=== PATIENT | male | born 1945 | race Caucasian/White ===

== ENCOUNTER 2018-07-20 13:36 | Inpatient (IN) | payer MEDICARE, MEDICAID ==
[~2018-07-20] VITALS: Ht 188 cm; Wt 100.5 kg
[~2018-07-20 13:36] MED LIST: NAPR500T6 PO; NO HOME MEDS; PRED20TA PO
[2018-07-20] MEDS ORDERED: normal saline 1000ML IV soln IVB ONE ×2 (14:05→14:35)
[2018-07-20 14:31] LABS: BASOPHILS % (AUTO) 0.3 % (0-1); EOSINOPHILS # (AUTO) 0.1 X10'3 (0-0.9); EOSINOPHILS % (AUTO) 1.1 % (0-6); HEMATOCRIT 51.6 % (42.0-52.0); HEMOGLOBIN 17.6 g/dl (14.0-17.9); LYMPHOCYTES # (AUTO) 1.2 X10'3 (1.1-4.8); MEAN CORPUSCULAR HEMOGLOBIN 36.6 PG (27.0-31.0); MEAN CORPUSCULAR HGB CONC 34.1 % (33.0-36.5); MEAN CORPUSCULAR VOLUME 107.3 FL (78-98); MEAN PLATELET VOLUME 9.1 FL (7.4-10.4); MONOCYTES # (AUTO) 0.6 X10'3 (0-0.9); MONOCYTES % (AUTO) 7.7 % (2-12); NEUTROPHILS # (AUTO) 5.7 X10'3 (1.8-7.7); NEUTROPHILS % (AUTO) 74.9 % (42-75); PLATELET COUNT 92 X10'3 (140-440); RED BLOOD COUNT 4.81 X10'6 (4.70-6.10); RED CELL DISTRIBUTION WIDTH 15.8 % (11.5-14.5); WHITE BLOOD COUNT 7.6 X10'3 (4.5-11.0)
[2018-07-20] MEDS ORDERED: diltiazem-NS 100mg/100ml 100 ML IV ONE (14:34)
[2018-07-20] MEDS ORDERED: enoxaparin 100mg/ml syringe SUBCUT ONE (14:35)
[2018-07-20] MEDS ORDERED: diltiazem 5mg/ml 5ml inj. IV ONE (14:35)
[2018-07-20 14:43] LABS: ALANINE AMINOTRANSFERASE 35 U/L (12-78); ALBUMIN 2.7 G/DL (3.4-5.0); ALBUMIN/GLOBULIN RATIO 0.7 (1.1-1.5); ALKALINE PHOSPHATASE 113 IU/L (46-116); ANION GAP 11 (8-16); ASPARTATE AMINO TRANSFERASE 47 U/L (10-37); BILIRUBIN,TOTAL 0.5 MG/DL (0.1-1.0); BLOOD UREA NITROGEN 17 MG/DL (7-18); CALCIUM 9.1 MG/DL (8.5-10.1); CHLORIDE 99 MMOL/L (99-107); CREATININE 0.85 MG/DL (0.60-1.10); GLUCOSE 159 MG/DL (70-104); LARGE PLATELETS FEW; PLATELET ESTIMATE DECREASED; SODIUM 136 MMOL/L (135-145); TOTAL CARBON DIOXIDE 25.9 MMOL/L (24-32); TOTAL PROTEIN 6.4 G/DL (6.4-8.2); eGFR 89 ML/MIN
[2018-07-20 14:51] LABS: POTASSIUM 2.8 MMOL/L (3.5-5.1)
[2018-07-20] MEDS ORDERED: ENAL10TA78 PO (14:52)
[2018-07-20] MEDS ORDERED: OMEP40CA37 PO (14:52)
[2018-07-20] MEDS ORDERED: ALB0.5UD NEB (14:52)
[2018-07-20] MEDS ORDERED: IBUP-1984 PO (14:52)
[2018-07-20] MEDS ORDERED: FLUT1BLS4 IH (14:52)
[2018-07-20 14:55] LABS: PARTIAL THROMBOPLASTIN TIME 29 SECONDS (22-32)
[2018-07-20] MEDS ORDERED: diltiazem-D5W 125mg/125ml 125 ML IV ONE (15:00)
[2018-07-20] MEDS: potassium 10mEq/100ml NS w/LIDOcaine (10mg/bag) IV SCH ×2 (15:16→16:22)
[2018-07-20] MEDS ORDERED: potassium Cl 40MEQ/NS 500ml 500 ML IV PRN ×2 (15:40)
[2018-07-20] MEDS ORDERED: HYDROcodone/acetaminophen 5mg/325mg tablet PO PRN (15:40)
[2018-07-20] MEDS ORDERED: magnesium 1gm/100ml D5W IVPB 100 ML IV PRN (15:40)
[2018-07-20] MEDS ORDERED: ondansetron/PF 4mg/2ml inj IV PRN (15:40)
[2018-07-20] MEDS ORDERED: potassium Cl 20 mEq SR tablet PO PRN (15:40)
[2018-07-20] MEDS ORDERED: dextrose 50%-water 50ml dispensing syringe IV PRN (15:40)
[2018-07-20] MEDS ORDERED: mag hydrox/Alum hydrox/simeth 30ml oral suspension PO PRN (15:40)
[2018-07-20] MEDS ORDERED: acetaminophen 325mg tablet PO PRN (15:40)
[2018-07-20] MEDS ORDERED: thiamine 100mg/ml 2ml inj. IV ONE (15:40)
[2018-07-20] MEDS ORDERED: magnesium 4gm in 100ml NS 100 ML IV PRN (15:40)
[2018-07-20] MEDS ORDERED: LORazepam 2 mg/ml vial IV PRN (15:40)
[2018-07-20] MEDS ORDERED: morphine 2 MG/ML inj. syringe IV PRN (15:40)
[2018-07-20] MEDS ORDERED: magnesium Cl slow-release 64mg tablet PO PRN (15:40)
[2018-07-20] MEDS ORDERED: LORazepam 1 MG tablet PO PRN (15:40)
[2018-07-20] MEDS ORDERED: magnesium hydroxide 30ml (MOM) UD suspension PO PRN (15:40)
[2018-07-20] MEDS: normal saline 1000ml 1,000 ML IV SCH (16:00)
[2018-07-20 16:01] LABS: CLARITY,URINE CLEAR (Clear); COLOR,URINE YELLOW (Yellow); GLUCOSE, URINE NEGATIVE (Neg); KETONES,URINE TRACE mg/dl (Neg); LEUKOCYTE ESTERASE ,URINE TRACE (Neg); NITRITES, URINE NEGATIVE (Neg); OCCULT BLOOD,URINE NEGATIVE (Neg); PROTEIN,URINE NEGATIVE (Neg)
[2018-07-20 16:02] LABS: UA COLLECTION TYPE URINAL
[2018-07-20 16:11] LABS: BACTERIA,URINE FEW /HPF (Neg); MUCUS STRANDS FEW /LPF (Neg); RBC,URINE 0-2 /HPF (0-2); SQUAMOUS EPITHELIAL CELL,UR FEW /LPF (FEW)
[2018-07-20 17:02] VITALS: BP 122/71
[2018-07-20 19:00] VITALS: BP 110/78
[2018-07-20 21:00] VITALS: BP 123/77
[2018-07-20 23:00] VITALS: BP 123/77
[2018-07-21] VITALS (12 sets, daily range): BP systolic 102–141; BP diastolic 54–88
[2018-07-21] MEDS: normal saline 1000ml 1,000 ML IV SCH ×2 (01:39→05:02)
[2018-07-21 02:26] LABS: BASOPHILS % (AUTO) 0.7 % (0-1); EOSINOPHILS # (AUTO) 0.1 X10'3 (0-0.9); EOSINOPHILS % (AUTO) 1.1 % (0-6); HEMATOCRIT 45.5 % (42.0-52.0); HEMOGLOBIN 15.6 g/dl (14.0-17.9); LYMPHOCYTES # (AUTO) 1.1 X10'3 (1.1-4.8); LYMPHOCYTES % (AUTO) 16.4 % (21-51); MEAN CORPUSCULAR HEMOGLOBIN 36.8 PG (27.0-31.0); MEAN CORPUSCULAR HGB CONC 34.4 % (33.0-36.5); MEAN CORPUSCULAR VOLUME 107.1 FL (78-98); MONOCYTES # (AUTO) 0.5 X10'3 (0-0.9); MONOCYTES % (AUTO) 7.9 % (2-12); NEUTROPHILS % (AUTO) 73.9 % (42-75); PLATELET COUNT 78 X10'3 (140-440); RED BLOOD COUNT 4.25 X10'6 (4.70-6.10); WHITE BLOOD COUNT 6.8 X10'3 (4.5-11.0)
[2018-07-21 02:29] LABS: ALANINE AMINOTRANSFERASE 30 U/L (12-78); ALBUMIN 2.3 G/DL (3.4-5.0); ALBUMIN/GLOBULIN RATIO 0.7 (1.1-1.5); ALKALINE PHOSPHATASE 85 IU/L (46-116); ANION GAP 5 (8-16); ASPARTATE AMINO TRANSFERASE 35 U/L (10-37); BILIRUBIN,TOTAL 0.7 MG/DL (0.1-1.0); BLOOD UREA NITROGEN 11 MG/DL (7-18); BUN/CREATININE RATIO 15.5 (5.4-32.0); CALCIUM 8.1 MG/DL (8.5-10.1); CHLORIDE 104 MMOL/L (99-107); CREATININE 0.71 MG/DL (0.60-1.10); GLUCOSE 106 MG/DL (70-104); POTASSIUM 3.4 MMOL/L (3.5-5.1); SODIUM 139 MMOL/L (135-145); TOTAL CARBON DIOXIDE 30.5 MMOL/L (24-32); TOTAL PROTEIN 5.4 G/DL (6.4-8.2); eGFR > 90 ML/MIN
[2018-07-21 02:32] LABS: MAGNESIUM 1.5 MG/DL (1.5-2.4)
[2018-07-21] MEDS ORDERED: K and/or MAG REPLACEMENT MC SCH (08:00)
[2018-07-21] MEDS: lisinopril 5mg tablet PO SCH (08:47)
[2018-07-21] MEDS: potassium Cl 20 mEq SR tablet PO PRN ×4 (08:47→18:38)
[2018-07-21] MEDS: pantoprazole 40mg Tablet.DR PO SCH (08:52)
[2018-07-21] MEDS ORDERED: nicotine 14mg patch - 24hr TD SCH (09:55)
[2018-07-21] MEDS ORDERED: LORazepam 1 MG tablet PO PRN (09:55)
[2018-07-21] MEDS ORDERED: iohexol 300mg/ml 100ml inj. ONE (16:20)
[2018-07-21] MEDS: thiamine 100mg tablet PO SCH (20:40)
[2018-07-22 03:00] VITALS: BP 117/77
[2018-07-22 06:47] LABS: ALANINE AMINOTRANSFERASE 32 U/L (12-78); ALBUMIN 2.3 G/DL (3.4-5.0); ALBUMIN/GLOBULIN RATIO 0.7 (1.1-1.5); ALKALINE PHOSPHATASE 85 IU/L (46-116); ANION GAP 8 (8-16); ASPARTATE AMINO TRANSFERASE 39 U/L (10-37); BILIRUBIN,TOTAL 0.7 MG/DL (0.1-1.0); BLOOD UREA NITROGEN 6 MG/DL (7-18); BUN/CREATININE RATIO 7.7 (5.4-32.0); CALCIUM 8.4 MG/DL (8.5-10.1); CHLORIDE 107 MMOL/L (99-107); CREATININE 0.78 MG/DL (0.60-1.10); GLUCOSE 99 MG/DL (70-104); MAGNESIUM 1.5 MG/DL (1.5-2.4); POTASSIUM 3.8 MMOL/L (3.5-5.1); SODIUM 142 MMOL/L (135-145); TOTAL CARBON DIOXIDE 27.5 MMOL/L (24-32); TOTAL PROTEIN 5.5 G/DL (6.4-8.2); eGFR > 90 ML/MIN
[2018-07-22 06:57] LABS: BASOPHILS % (AUTO) 0.3 % (0-1); EOSINOPHILS % (AUTO) 0 % (0-6); HEMATOCRIT 45.8 % (42.0-52.0); HEMOGLOBIN 15.3 g/dl (14.0-17.9); LYMPHOCYTES % (AUTO) 14.4 % (21-51); MEAN CORPUSCULAR HEMOGLOBIN 35.9 PG (27.0-31.0); MEAN CORPUSCULAR HGB CONC 33.3 % (33.0-36.5); MEAN CORPUSCULAR VOLUME 107.8 FL (78-98); MEAN PLATELET VOLUME 8.9 FL (7.4-10.4); MONOCYTES # (AUTO) 0.5 X10'3 (0-0.9); MONOCYTES % (AUTO) 7.6 % (2-12); NEUTROPHILS # (AUTO) 5.2 X10'3 (1.8-7.7); NEUTROPHILS % (AUTO) 77.7 % (42-75); PLATELET COUNT 84 X10'3 (140-440); RED BLOOD COUNT 4.25 X10'6 (4.70-6.10); RED CELL DISTRIBUTION WIDTH 15.7 % (11.5-14.5); WHITE BLOOD COUNT 6.6 X10'3 (4.5-11.0)
[2018-07-22 07:00] VITALS: BP 147/86
[2018-07-22] MEDS ORDERED: multivitamins, therapeutics tablet PO SCH (08:00)
[2018-07-22] MEDS ORDERED: folic acid 1mg tablet PO SCH (08:00)
[2018-07-22] MEDS: thiamine 100mg tablet PO SCH (08:05)
[2018-07-22] MEDS: lisinopril 5mg tablet PO SCH (08:06)
[2018-07-22] MEDS: pantoprazole 40mg Tablet.DR PO SCH (08:06)
[2018-07-22] MEDS ORDERED: NICO-631 TD (09:16)
[2018-07-22] MEDS ORDERED: FOLI1TAB16 PO (09:16)
[2018-07-22] MEDS ORDERED: RIVA20TA PO (09:16)
[2018-07-22] MEDS ORDERED: MULT-1179 PO (09:16)
[2018-07-22] MEDS ORDERED: THI100T PO (09:16)
[2018-07-22] MEDS ORDERED: DILT180C95 PO (09:22)
[2018-07-22 11:00] VITALS: BP 147/100
== END 2018-07-22 12:35 | disposition home or self-care (01) | DRG 309 ==
LOC: ER 13:37 → ED HOLD 15:39 → PCU 3S 16:30
PROVIDERS: ADMIT Internal Medicine; ATTEND Family Medicine
PROC: BW281ZZ Computerized Tomography (CT Scan) of Head using Low Osmolar Contrast (ICD-10-PCS; principal; 2018-07-21)
DX: I48.91 Unspecified atrial fibrillation (principal); E44.0 Moderate protein-calorie malnutrition; E87.6 Hypokalemia; F10.10 Alcohol abuse, uncomplicated; F17.210 Nicotine dependence, cigarettes, uncomplicated; I10 Essential (primary) hypertension; G90.8 Other disorders of autonomic nervous system; R51 Headache; J44.9 Chronic obstructive pulmonary disease, unspecified; K76.0 Fatty (change of) liver, not elsewhere classified; Z79.899 Other long term (current) drug therapy; Z87.01 Personal history of pneumonia (recurrent); Z71.6 Tobacco abuse counseling; Z71.41 Alcohol abuse counseling and surveillance of alcoholic; Z68.28 Body mass index [BMI] 28.0-28.9, adult
CPT/HCPCS: 36415; 70470; 71045; 76700; 80053; 80320; 81001; 82948; 83735; 84132; 84145; 84484; 85025; 85610; 85730; 87070; 87088; 93005; 93306; 93880; 96361; 96372; 96374; 97116; 97161; 97530; 99285; G0378; J1650; J3411; J3480; J3490; J7030; Q9967

== ENCOUNTER 2018-08-11 02:38 | Inpatient (IN) | payer MEDICARE, MEDICAID ==
[2018-08-11] VITALS (11 sets, daily range): BP systolic 62–106; BP diastolic 44–77
[~2018-08-11] VITALS: Ht 188 cm; Wt 112.8 kg
[~2018-08-11 02:38] MED LIST changes: +ALB0.5UD NEB; +DILT180C95 PO; +FLUT1BLS4 IH; +FOLI1TAB16 PO; +MULT-1179 PO; -NAPR500T6 PO; +NICO-631 TD; -NO HOME MEDS; +OMEP40CA37 PO; -PRED20TA PO; +RIVA20TA PO; +THI100T PO
[2018-08-11] MEDS ORDERED: morphine 4 MG/ML inj SYRINge IV ONE ×3 (03:00→04:45)
[2018-08-11] MEDS ORDERED: normal saline 1000ml 1,000 ML IV ONE ×2 (03:00→15:45)
[2018-08-11] MEDS ORDERED: ondansetron/PF 4mg/2ml inj IV ONE (03:00)
[2018-08-11 04:19] LABS: BASOPHILS % (AUTO) 0.1 % (0-1); EOSINOPHILS % (AUTO) 0 % (0-6); HEMATOCRIT 53.6 % (42.0-52.0); HEMOGLOBIN 17.8 g/dl (14.0-17.9); LYMPHOCYTES # (AUTO) 0.8 X10'3 (1.1-4.8); LYMPHOCYTES % (AUTO) 4.5 % (21-51); MEAN CORPUSCULAR HEMOGLOBIN 35.5 PG (27.0-31.0); MEAN CORPUSCULAR HGB CONC 33.2 % (33.0-36.5); MEAN CORPUSCULAR VOLUME 106.8 FL (78-98); MEAN PLATELET VOLUME 9.5 FL (7.4-10.4); MONOCYTES # (AUTO) 0.2 X10'3 (0-0.9); MONOCYTES % (AUTO) 0.9 % (2-12); NEUTROPHILS # (AUTO) 16.3 X10'3 (1.8-7.7); NEUTROPHILS % (AUTO) 94.5 % (42-75); PLATELET COUNT 118 X10'3 (140-440); RED BLOOD COUNT 5.02 X10'6 (4.70-6.10); RED CELL DISTRIBUTION WIDTH 15.2 % (11.5-14.5); WHITE BLOOD COUNT 17.3 X10'3 (4.5-11.0)
[2018-08-11 04:39] LABS: INR 1.3 INR; PROTHROMBIN TIME 13.1 SECONDS (9.0-12.0)
[2018-08-11] MEDS ORDERED: labetalol 20mg/4ml (5mg/ml) syringe IV ONE (04:45)
[2018-08-11 04:48] LABS: ALANINE AMINOTRANSFERASE 30 U/L (12-78); ALBUMIN/GLOBULIN RATIO 0.9 (1.1-1.5); ALKALINE PHOSPHATASE 104 IU/L (46-116); ANION GAP 10 (8-16); BILIRUBIN,TOTAL 2.2 MG/DL (0.1-1.0); BLOOD UREA NITROGEN 28 MG/DL (7-18); CALCIUM 8.3 MG/DL (8.5-10.1); CHLORIDE 107 MMOL/L (99-107); GLUCOSE 169 MG/DL (70-104); LIPASE 141 U/L (73-393); SODIUM 141 MMOL/L (135-145); TOTAL PROTEIN 6.2 G/DL (6.4-8.2); TROPONIN I < 0.04 NG/ML (0.0-0.05); eGFR 74 ML/MIN
[2018-08-11 04:56] LABS: POTASSIUM 3.4 MMOL/L (3.5-5.1)
[2018-08-11 04:59] LABS: ASPARTATE AMINO TRANSFERASE 54 U/L (10-37)
[2018-08-11] MEDS ORDERED: metroNIDAZOLE-Flagyl 500mg/NS 100 ML IV STA (04:59)
[2018-08-11] MEDS ORDERED: ciprofloxacin 250mg tablet PO ONE (05:00)
[2018-08-11] MEDS ORDERED: NAPROXEN 500 MG TABLET (05:29)
[2018-08-11] MEDS ORDERED: FOLIC ACID 1 MG TABLET (05:29)
[2018-08-11] MEDS ORDERED: TRELEGY ELLIPTA 100-62.5-25 (05:29)
[2018-08-11] MEDS ORDERED: ELIQUIS 5 MG TABLET (05:29)
[2018-08-11] MEDS ORDERED: XARELTO 20 MG TABLET (05:29)
[2018-08-11] MEDS ORDERED: ONDANSETRON ODT 4 MG TABLET (05:29)
[2018-08-11] MEDS ORDERED: THERA M (05:29)
[2018-08-11] MEDS ORDERED: VITAMIN B1 (05:29)
[2018-08-11] MEDS ORDERED: LISINOPRIL 20 MG TABLET (05:29)
[2018-08-11] MEDS ORDERED: ACETAMINOPHEN COD (05:29)
[2018-08-11] MEDS ORDERED: NICOTINE 14 MG/24HR PATCH (05:29)
[2018-08-11] MEDS ORDERED: ACETAMINOPHEN-COD #3 TABLET (05:29)
[2018-08-11] MEDS ORDERED: pantoprazole 40MG/NS 100ML BAG 100 ML IV ONE (05:35)
[2018-08-11] MEDS ORDERED: pantoprazole IV 80 MG in normal saline 100ml IV soln 100 ML IV ONE (05:35)
[2018-08-11] MEDS ORDERED: TRANEXAMIC ACID IV ONE (05:50)
[2018-08-11] MEDS ORDERED: NORMAL SALINE IV ONE (05:50)
[2018-08-11] MEDS ORDERED: tranexamic acid 100mg/ml inj. IV ONE (05:50)
[2018-08-11] MEDS ORDERED: pantoprazole 40 MG vial IV ONE (05:55)
--- NOTE | 2018-08-11 06:01 | NUR ---
PT STATES HE DIDN'T TAKE HIS ZARELTO FOR 4 DAYS BUT DID TAKE ONE LAST NIGHT. MADE AWARE
--- NOTE | 2018-08-11 06:13 | NUR ---
PATIENT UP TO THE BATHROOM, ASSISTED BY HIS SPOUSE.
--- NOTE | 2018-08-11 06:50 | NUR ---
PATIENTS DAVID TRENDING DOWN 126/93 AT THIS TIME,NO HOSPITALIST LIST YET,DR. CORTES MADE AWARE,ORDERED NS 1L BOLUS.
--- NOTE | 2018-08-11 07:04 | NUR ---
patient requesting pain medicine,still no hospitalist assigned,verbal order received morphine 4mg iv x1.Order noted and carried out.
[2018-08-11] MEDS ORDERED: morphine 4 MG/ML inj SYRINge IV STA (07:05)
[2018-08-11] MEDS ORDERED: potassium Cl 40MEQ/NS 500ml 500 ML IV PRN ×2 (07:20)
[2018-08-11] MEDS ORDERED: magnesium 4gm in 100ml NS 100 ML IV PRN (07:20)
[2018-08-11] MEDS ORDERED: magnesium Cl slow-release 64mg tablet PO PRN (07:20)
[2018-08-11] MEDS ORDERED: ondansetron/PF 4mg/2ml inj IV PRN ×2 (07:20→21:15)
[2018-08-11] MEDS ORDERED: potassium Cl 20 mEq SR tablet PO PRN ×2 (07:20)
[2018-08-11] MEDS ORDERED: morphine 2 MG/ML inj. syringe IV PRN (07:20)
[2018-08-11] MEDS: pantoprazole 40 MG vial IV SCH ×3 (08:00→23:02)
[2018-08-11] MEDS: metroNIDAZOLE-Flagyl 500mg/NS 100 ML IV SCH ×3 (08:00→23:01)
[2018-08-11 08:30] LABS: OCCULT BLOOD STOOL POSITIVE (Neg)
[2018-08-11] MEDS: levoFLOXACIN-Levaquin 750MG/D5 150 ML IV SCH (08:38)
[2018-08-11] MEDS: normal saline 1000ml 1,000 ML IV SCH ×5 (08:38→22:52)
[2018-08-11] MEDS: K and/or MAG REPLACEMENT MC SCH (08:46)
--- NOTE | 2018-08-11 09:10 | NUR ---
RECIEVED PATIENT REPORT FROM ED NURSE HELEN.
[2018-08-11] MEDS ORDERED: MIDAZolam 5mg/5ml vial ONE (10:43)
[2018-08-11] MEDS ORDERED: fentaNYL/PF 50MCG/1 ML 2ML syringe ONE (10:43)
[2018-08-11] MEDS ORDERED: LIDOcaine Viscous 15ml cup ONE (10:43)
[2018-08-11] MEDS ORDERED: normal saline 500ml IV soln 1,000 ML IV ONE (12:30)
--- NOTE | 2018-08-11 12:57 | NUR ---
Dr. Blackman came to see patient, she is concerned he is not doing well. Patients BP is dropping. Dr. Blackman wants patient transferred to PCU. GI lab will be up to get him soon for EGD
--- NOTE | 2018-08-11 14:50 | NUR ---
Pt does not feel urgency to void. Bladder scanned pt with 270ml noted. No bladder discomfort reported, just lower abd discomfort/pain.
[2018-08-11 15:08] LABS: BASOPHILS % (AUTO) 0.1 % (0-1); EOSINOPHILS % (AUTO) 0.1 % (0-6); HEMATOCRIT 56.1 % (42.0-52.0); LYMPHOCYTES # (AUTO) 0.7 X10'3 (1.1-4.8); LYMPHOCYTES % (AUTO) 4.1 % (21-51); MEAN CORPUSCULAR HEMOGLOBIN 35.9 PG (27.0-31.0); MEAN CORPUSCULAR HGB CONC 33.5 % (33.0-36.5); MEAN PLATELET VOLUME 9.6 FL (7.4-10.4); MONOCYTES # (AUTO) 0.4 X10'3 (0-0.9); NEUTROPHILS # (AUTO) 16.9 X10'3 (1.8-7.7); NEUTROPHILS % (AUTO) 93.7 % (42-75); PLATELET COUNT 93 X10'3 (140-440); RED BLOOD COUNT 5.24 X10'6 (4.70-6.10); RED CELL DISTRIBUTION WIDTH 15.3 % (11.5-14.5)
[2018-08-11 15:12] LABS: HEMOGLOBIN 18.8 g/dl (14.0-17.9)
[2018-08-11 15:37] LABS: ALANINE AMINOTRANSFERASE 36 U/L (12-78); ALBUMIN 2.5 G/DL (3.4-5.0); ALBUMIN/GLOBULIN RATIO 0.9 (1.1-1.5); ALKALINE PHOSPHATASE 65 IU/L (46-116); ANION GAP 15 (8-16); ASPARTATE AMINO TRANSFERASE 98 U/L (10-37); BLOOD UREA NITROGEN 41 MG/DL (7-18); BUN/CREATININE RATIO 17.4 (5.4-32.0); CALCIUM 8.1 MG/DL (8.5-10.1); CHLORIDE 110 MMOL/L (99-107); CREATININE 2.35 MG/DL (0.60-1.10); GLUCOSE 156 MG/DL (70-104); POTASSIUM 5.6 MMOL/L (3.5-5.1); SODIUM 140 MMOL/L (135-145); TOTAL CARBON DIOXIDE 15.4 MMOL/L (24-32); TOTAL PROTEIN 5.4 G/DL (6.4-8.2); TROPONIN I 0.17 NG/ML (0.0-0.05); eGFR 27 ML/MIN
[2018-08-11] MEDS: pantoprazole 40MG/NS 100ML BAG 100 ML IV SCH ×2 (15:38→23:31)
[2018-08-11 15:48] LABS: INR 1.3 INR; PARTIAL THROMBOPLASTIN TIME 31 SECONDS (22-32); PROTHROMBIN TIME 13.4 SECONDS (9.0-12.0)
[2018-08-11 16:04] LABS: TOTAL CELLS COUNTED 100
[2018-08-11 16:05] LABS: PLATELET ESTIMATE DECREASED
--- NOTE | 2018-08-11 17:00 | NUR ---
Vitals beginning at Rapid Response- also noted in Rapid Response Intervention Vitals: 14:53 BP 89/64 hr 116 14:54 BP 88/59 hr 118 14:56 BP 94/61 hr 111 15:03 BP 83/59 hr 112 15:14 BP 78/55 hr 111 15:36 BP 84/57 hr 115 15:37 BP 100/51 hr 114 16:20 BP 94/63 hr 118 Temp 97.5 O2 3LNC 94% Respirations 30
--- NOTE | 2018-08-11 17:00 | NUR ---
Pt arrived to unit via gurney and slid over to bed via slideboard. Complaining of severe abd pain. 1000ml NS bolus infusing. Attached to ICU monitor, SPB 80s-90s. Dr. Motta at bedside to insert central line. Inserted without difficulty and placement confirmed via xray. Pt placed on NRB due to low O2 sats. NGT inserted successfully and placed to low continuous suction, pt vomited x4. Consents for procedures signed by with me as witness. Dr. Royal came by to discuss surgery with pt for ex lap with poss bowel resection, pt verbally consented. PCT prepped surgical area. Anesthesiologist at bedside requesting levophed. 2nd NS bolus infusing at this time, pressures 70s-80s systoloic. Taken to surgery by OR team and report given to machinist 2nd shift nurse Jay Jay. Addendum: 08/11/18 at 1903 by Tammy Rojas RN TIME OF EVENTS 1800
--- NOTE | 2018-08-11 18:00 | NUR ---
Pt arrived to unit via gurney and slid over to bed via slideboard. Complaining of severe abd pain. 1000ml NS bolus infusing. Attached to ICU monitor, SPB 80s-90s. Dr. Motta at bedside to insert central line. Inserted without difficulty and placement confirmed via xray. Pt placed on NRB due to low O2 sats. NGT inserted successfully and placed to low continuous suction, pt vomited x4. Consents for procedures signed by with me as witness. Dr. Royal came by to discuss surgery with pt for ex lap with poss bowel resection, pt verbally consented. PCT prepped surgical area. Anesthesiologist at bedside requesting levophed. 2nd NS bolus infusing at this time, pressures 70s-80s systoloic. Taken to surgery by OR team and report given to shift leader nurse Jay Jay.
[2018-08-11] MEDS ORDERED: clindamycin phosphate 150mg/ml inj. ONE (18:09)
[2018-08-11] MEDS ORDERED: gentamicin 40 MG/1 ML inj ONE (18:09)
--- NOTE | 2018-08-11 18:30 | NUR ---
Problems reprioritized. Patient report given, questions answered & plan of care reviewed with JASON Goyal.
[2018-08-11] MEDS ORDERED: sevoflurane 250ml liquid IH ONE (18:40)
[2018-08-11] MEDS ORDERED: NORepinephrine bitartrate 8 MG in NS 250 ML BAG (32 mcg/ml) IV ONE (18:40)
[2018-08-11] MEDS ORDERED: ketamine 50mg/5ml syringe ONE (18:43)
[2018-08-11] MEDS ORDERED: midazolam 2 mg/2 ml injection ONE (18:43)
[2018-08-11] MEDS ORDERED: fentaNYL /PF 50mcg/ml 5ml ampule ONE (18:44)
--- NOTE | 2018-08-11 18:54 | NUR ---
patient left to OR at this time
[2018-08-11 19:35] LABS: ABG BASE EXCESS -17.3 mmol/L (-2.0-3.0); ABG HCO3 13.5 mmol/L (22.0-26.0); ABG OXYGEN SATURATION 99.7 % (95-98); ABG PCO2 (T) 51.1 mmHg (35.0-48.0); ABG PO2 (T) 375.4 mmHg (83-108); FCOHb 1.9 % (0.5-1.5); FMetHb 0.3 % (0.3-1.12); FO2Hb 97.5 % (94-100); TOTAL HEMOGLOBIN 15.9 G/dl (14.0-18.0)
[2018-08-11] MEDS ORDERED: ipratropium/albuterol 3ml nebule NEB PRN (20:10)
[2018-08-11 20:25] LABS: ABG BASE EXCESS -12.6 mmol/L (-2.0-3.0); ABG HCO3 15.5 mmol/L (22.0-26.0); ABG OXYGEN SATURATION 99.7 % (95-98); ABG PCO2 (T) 44.2 mmHg (35.0-48.0); ABG PH (T) 7.165 (7.350-7.450); ABG PO2 (T) 322.3 mmHg (83-108); FCOHb 2.1 % (0.5-1.5); FMetHb 0.3 % (0.3-1.12); FO2Hb 97.3 % (94-100); PATIENT TEMPERATURE 37.4; TOTAL HEMOGLOBIN 13.9 G/dl (14.0-18.0)
--- NOTE | 2018-08-11 21:30 | NUR ---
patient back from OR at 2130. intubated/sedated. BP 60's/40's. levo and fluid bolus where already infusing. Dr herrera present. gave order for vasopressin.
[2018-08-11] MEDS ORDERED: albumin (Human) 5% 250ml 500 ML IV ONE ×2 (21:31→22:01)
[2018-08-11] MEDS ORDERED: rocuronium 10mg/ml inj IV ONE (21:31)
[2018-08-11] MEDS ORDERED: epiNEPHrine 1 mg/ml inj ONE (21:31)
[2018-08-11] MEDS ORDERED: sodium bicarbonate 1 MEQ/1 ml inj ONE (21:32)
[2018-08-11] MEDS ORDERED: furosemide 40mg/4ml inj ONE (21:32)
[2018-08-11 21:45] LABS: ABG BASE EXCESS -8.4 mmol/L (-2.0-3.0); ABG HCO3 20.4 mmol/L (22.0-26.0); ABG OXYGEN SATURATION 99.5 % (95-98); ABG PCO2 (T) 56.9 mmHg (35.0-48.0); ABG PH (T) 7.173 (7.350-7.450); ABG PO2 (T) 231.3 mmHg (83-108); FCOHb 1.5 % (0.5-1.5); FMetHb 0.3 % (0.3-1.12); FO2Hb 97.7 % (94-100); MINUTE VOLUME 9 L/min; PEEP 5 cm H2O; RESPIRATORY RATE 16 b/min; RESPIRATORY RATE (OBSERVED) 16 b/min; TIDAL VOLUME 500 mL; TOTAL HEMOGLOBIN 12.7 G/dl (14.0-18.0)
--- NOTE | 2018-08-11 22:00 | NUR ---
Dr Royal present around 2200. observed pt BP. gave order to start vasopressin as soon as possible from pharmacy. gave orders for 1000ml of 5% albumin to be given STAT. stated that we wanted patient on a flotrac if possible to observe fluid status.
[2018-08-11] MEDS: vasopressin inj. 60 UNIT in normal saline 100ml IV soln 97 ML IV SCH (22:18)
[2018-08-11] MEDS ORDERED: albumin (Human) 5% 250ml 250 ML IV ONE ×5 (22:20→22:22)
[2018-08-11 22:35] LABS: OXYGEN SATURATION (MIXED VEN) 80.7 % (60-80); PO2 MIXED VENOUS (TEMP COR) 44.9 mmHg (35-46)
[2018-08-11 22:35] LABS: ABG BASE EXCESS -9.5 mmol/L (-2.0-3.0); ABG HCO3 17.6 mmol/L (22.0-26.0); ABG OXYGEN SATURATION 96.1 % (95-98); ABG PCO2 (T) 43.6 mmHg (35.0-48.0); ABG PH (T) 7.225 (7.350-7.450); ABG PO2 (T) 85.8 mmHg (83-108); FCOHb 1.4 % (0.5-1.5); FMetHb 0.3 % (0.3-1.12); FO2Hb 94.5 % (94-100); MINUTE VOLUME 14 L/min; PEEP 5 cm H2O; RESPIRATORY RATE 24 b/min; RESPIRATORY RATE (OBSERVED) 24 b/min; TIDAL VOLUME 550 mL; TOTAL HEMOGLOBIN 11.4 G/dl (14.0-18.0)
[2018-08-11] MEDS: midazolam 100mg in NS 100ml 100 ML IV PRN (23:02)
[2018-08-11] MEDS: FENTANYL-0.9 % NACL/PF 100 ML IV PRN (23:02)
[2018-08-11] MEDS: piperacillin/tazo 3.375gm/50ml 50 ML IV SCH (23:03)
[2018-08-11] MEDS: sodium bicarbonate (8.4%) inj. 150 MEQ in sodium chloride 0.45% 1,000 ML IV SCH (23:38)
[2018-08-11 23:46] LABS: ABG BASE EXCESS -8.7 mmol/L (-2.0-3.0); ABG HCO3 16.8 mmol/L (22.0-26.0); ABG OXYGEN SATURATION 95.4 % (95-98); ABG PCO2 (T) 34.8 mmHg (35.0-48.0); ABG PH (T) 7.302 (7.350-7.450); ABG PO2 (T) 78.9 mmHg (83-108); FCOHb 0.9 % (0.5-1.5); FMetHb 0.3 % (0.3-1.12); FO2Hb 94.3 % (94-100); MINUTE VOLUME 16 L/min; PATIENT TEMPERATURE 36.8; PEEP 5 cm H2O; RESPIRATORY RATE 24 b/min; RESPIRATORY RATE (OBSERVED) 24 b/min; TIDAL VOLUME 600 mL; TOTAL HEMOGLOBIN 10.8 G/dl (14.0-18.0)
[2018-08-12] VITALS (35 sets, daily range): BP systolic 92–134; BP diastolic 44–71
--- NOTE | 2018-08-12 | NUR ---
dr Royal present again at this time. observed pt VS and gave orders for 1000ml more of 5% albumin.
[2018-08-12] MEDS ORDERED: albumin (Human) 5% 250ml 250 ML IV ONE ×3 (00:30)
--- NOTE | 2018-08-12 00:30 | NUR ---
flotrac found and initiated at this time. excellent CO/CI
[2018-08-12] MEDS: pantoprazole 40MG/NS 100ML BAG 100 ML IV SCH ×5 (01:00→21:43)
[2018-08-12] MEDS ORDERED: NORepinephrine 8mg/ 250ml NS 250 ML IV ONE (01:23)
[2018-08-12] MEDS: normal saline 1000ml 1,000 ML IV SCH ×4 (01:40→12:30)
[2018-08-12] MEDS: piperacillin/tazo 3.375gm/50ml 50 ML IV SCH ×4 (01:40→20:00)
[2018-08-12] MEDS ORDERED: piperacillin/tazo 3.375gm/50ml 50 ML IV SCH (02:00)
[2018-08-12] MEDS: albumin (Human) 5% 250ml 250 ML IV SCH ×4 (02:27→02:30)
[2018-08-12 03:40] LABS: ABG HCO3 17.2 mmol/L (22.0-26.0); ABG PCO2 (T) 33.7 mmHg (35.0-48.0); ABG PH (T) 7.326 (7.350-7.450); ABG PO2 (T) 86.5 mmHg (83-108); FCOHb 0.4 % (0.5-1.5); FMetHb 0.3 % (0.3-1.12); FO2Hb 95.3 % (94-100); MINUTE VOLUME 16 L/min; PATIENT TEMPERATURE 36.9; PEEP 5 cm H2O; RESPIRATORY RATE 24 b/min; RESPIRATORY RATE (OBSERVED) 26 b/min; TIDAL VOLUME 600 mL; TOTAL HEMOGLOBIN 9.2 G/dl (14.0-18.0)
[2018-08-12 03:52] LABS: ANION GAP 11 (8-16); BLOOD UREA NITROGEN 50 MG/DL (7-18); BUN/CREATININE RATIO 17.4 (5.4-32.0); CALCIUM 6.5 MG/DL (8.5-10.1); CHLORIDE 115 MMOL/L (99-107); CREATININE 2.88 MG/DL (0.60-1.10); GLUCOSE 148 MG/DL (70-104); MAGNESIUM 1.1 MG/DL (1.5-2.4); POTASSIUM 5.9 MMOL/L (3.5-5.1); SODIUM 146 MMOL/L (135-145); TOTAL CARBON DIOXIDE 19.7 MMOL/L (24-32); eGFR 22 ML/MIN
[2018-08-12 04:33] LABS: BASOPHILS % (AUTO) 0.1 % (0-1); EOSINOPHILS % (AUTO) 0.1 % (0-6); HEMATOCRIT 25.3 % (42.0-52.0); HEMOGLOBIN 8.4 g/dl (14.0-17.9); LYMPHOCYTES # (AUTO) 0.7 X10'3 (1.1-4.8); LYMPHOCYTES % (AUTO) 5.8 % (21-51); MEAN CORPUSCULAR HEMOGLOBIN 35.5 PG (27.0-31.0); MEAN CORPUSCULAR HGB CONC 33.4 % (33.0-36.5); MEAN CORPUSCULAR VOLUME 106.2 FL (78-98); MEAN PLATELET VOLUME 10.3 FL (7.4-10.4); MONOCYTES # (AUTO) 0.4 X10'3 (0-0.9); MONOCYTES % (AUTO) 3.2 % (2-12); NEUTROPHILS # (AUTO) 10.7 X10'3 (1.8-7.7); NEUTROPHILS % (AUTO) 90.8 % (42-75); PLATELET COUNT 52 X10'3 (140-440); RED BLOOD COUNT 2.38 X10'6 (4.70-6.10); RED CELL DISTRIBUTION WIDTH 15.2 % (11.5-14.5); WHITE BLOOD COUNT 11.8 X10'3 (4.5-11.0)
--- NOTE | 2018-08-12 06:45 | NUR ---
Problems reprioritized. Patient report given, questions answered & plan of care reviewed with Celia GOMEZ.
[2018-08-12 07:35] LABS: TOTAL CELLS COUNTED 100
[2018-08-12 07:36] LABS: ANISOCYTOSIS 1+; PLATELET ESTIMATE DECREASED; TOXIC GRANULATION 1+
[2018-08-12] MEDS: pantoprazole 40 MG vial IV SCH ×2 (08:00→21:24)
[2018-08-12] MEDS: K and/or MAG REPLACEMENT MC SCH (08:00)
[2018-08-12] MEDS: metroNIDAZOLE-Flagyl 500mg/NS 100 ML IV SCH ×3 (08:27→23:52)
[2018-08-12] MEDS: levoFLOXACIN-Levaquin 750MG/D5 150 ML IV SCH (08:27)
[2018-08-12] MEDS: midazolam 100mg in NS 100ml 100 ML IV PRN (09:59)
[2018-08-12] MEDS: FENTANYL-0.9 % NACL/PF 100 ML IV PRN (10:00)
[2018-08-12 10:04] LABS: BASOPHILS % (AUTO) 0.4 % (0-1); EOSINOPHILS % (AUTO) 0 % (0-6); HEMATOCRIT 24.6 % (42.0-52.0); HEMOGLOBIN 8.2 g/dl (14.0-17.9); LYMPHOCYTES # (AUTO) 0.5 X10'3 (1.1-4.8); LYMPHOCYTES % (AUTO) 5.8 % (21-51); MEAN CORPUSCULAR HEMOGLOBIN 35.3 PG (27.0-31.0); MEAN CORPUSCULAR HGB CONC 33.2 % (33.0-36.5); MEAN CORPUSCULAR VOLUME 106.3 FL (78-98); MEAN PLATELET VOLUME 9.8 FL (7.4-10.4); MONOCYTES # (AUTO) 0.2 X10'3 (0-0.9); MONOCYTES % (AUTO) 2.5 % (2-12); NEUTROPHILS # (AUTO) 7.7 X10'3 (1.8-7.7); NEUTROPHILS % (AUTO) 91.3 % (42-75); PLATELET COUNT 51 X10'3 (140-440); RED BLOOD COUNT 2.31 X10'6 (4.70-6.10); RED CELL DISTRIBUTION WIDTH 14.9 % (11.5-14.5); WHITE BLOOD COUNT 8.4 X10'3 (4.5-11.0)
[2018-08-12] MEDS: sodium bicarbonate (8.4%) inj. 150 MEQ in sodium chloride 0.45% 1,000 ML IV SCH (10:20)
[2018-08-12] MEDS: sodium bicarbonate (8.4%) inj. 100 MEQ in dextrose 5%-water 1,000 ML IV SCH ×3 (10:23→21:44)
[2018-08-12 11:34] LABS: ALANINE AMINOTRANSFERASE 83 U/L (12-78); ALBUMIN 2.6 G/DL (3.4-5.0); ALBUMIN/GLOBULIN RATIO 1.9 (1.1-1.5); ALKALINE PHOSPHATASE 16 IU/L (46-116); ANION GAP 14 (8-16); ASPARTATE AMINO TRANSFERASE 185 U/L (10-37); BLOOD UREA NITROGEN 53 MG/DL (7-18); BUN/CREATININE RATIO 15.6 (5.4-32.0); CALCIUM 6.8 MG/DL (8.5-10.1); CHLORIDE 113 MMOL/L (99-107); CREATINE KINASE 87 U/L (39-308); GLUCOSE 168 MG/DL (70-104); MAGNESIUM 2.2 MG/DL (1.5-2.4); PHOSPHORUS 3.3 MG/DL (2.3-4.5); POTASSIUM 5.3 MMOL/L (3.5-5.1); SODIUM 146 MMOL/L (135-145); TOTAL CARBON DIOXIDE 19.5 MMOL/L (24-32); eGFR 18 ML/MIN
[2018-08-12] MEDS: vasopressin inj. 60 UNIT in normal saline 100ml IV soln 97 ML IV SCH ×2 (18:09→22:40)
--- NOTE | 2018-08-12 18:30 | NUR ---
Patient in room CICU 2006. I have received report from Celia GOMEZ and had the opportunity to ask questions and assume patient care.
[2018-08-12] MEDS ORDERED: rocuronium 10mg/ml inj IV ONE (18:44)
--- NOTE | 2018-08-12 18:45 | NUR ---
Jacqueline Middleton was called at this time to gain consent. Lele spoke on phone with her, and then myself and one other RN listened to verbal consent.
[2018-08-12 19:03] LABS: BASOPHILS % (AUTO) 0.1 % (0-1); EOSINOPHILS % (AUTO) 0.2 % (0-6); HEMATOCRIT 28.1 % (42.0-52.0); HEMOGLOBIN 9.4 g/dl (14.0-17.9); LYMPHOCYTES # (AUTO) 0.4 X10'3 (1.1-4.8); LYMPHOCYTES % (AUTO) 5.2 % (21-51); MEAN CORPUSCULAR HEMOGLOBIN 34.3 PG (27.0-31.0); MEAN CORPUSCULAR HGB CONC 33.4 % (33.0-36.5); MEAN CORPUSCULAR VOLUME 102.7 FL (78-98); MEAN PLATELET VOLUME 9.3 FL (7.4-10.4); MONOCYTES # (AUTO) 0.2 X10'3 (0-0.9); MONOCYTES % (AUTO) 3.1 % (2-12); NEUTROPHILS # (AUTO) 6.7 X10'3 (1.8-7.7); NEUTROPHILS % (AUTO) 91.4 % (42-75); RED BLOOD COUNT 2.73 X10'6 (4.70-6.10); WHITE BLOOD COUNT 7.3 X10'3 (4.5-11.0)
--- NOTE | 2018-08-12 19:13 | NUR ---
pt left unit to go to OR at this time.
[2018-08-12 19:20] LABS: PLATELET COUNT 42 X10'3 (140-440)
--- NOTE | 2018-08-12 19:37 | NUR ---
I spoke with Dr Grimaldo and communicated pt critical plts of 42. he is aware.
[2018-08-12] MEDS ORDERED: gentamicin 40 MG/1 ML inj ONE (20:55)
[2018-08-12] MEDS ORDERED: clindamycin phosphate 150mg/ml inj. ONE (20:55)
--- NOTE | 2018-08-12 20:55 | NUR ---
patient arrived from the OR at 2054. VS WNL's. continue to monitor
--- NOTE | 2018-08-12 21:28 | NUR ---
2000 zosyn non-administered at this time because per Dr Grimaldo anesthesia record, it was given in the OR.
[2018-08-12 22:10] LABS: ABG BASE EXCESS -3.5 mmol/L (-2.0-3.0); ABG HCO3 22.1 mmol/L (22.0-26.0); ABG PCO2 (T) 41.5 mmHg (35.0-48.0); ABG PH (T) 7.343 (7.350-7.450); ABG PO2 (T) 65.9 mmHg (83-108); FCOHb 0.9 % (0.5-1.5); FMetHb 0.3 % (0.3-1.12); FO2Hb 90.9 % (94-100); MINUTE VOLUME 11 L/min; PATIENT TEMPERATURE 36.7; PEEP 5 cm H2O; RESPIRATORY RATE 16 b/min; RESPIRATORY RATE (OBSERVED) 18 b/min; TIDAL VOLUME 500 mL; TOTAL HEMOGLOBIN 9.7 G/dl (14.0-18.0)
[2018-08-12 23:10] LABS: BASOPHILS % (AUTO) 0.6 % (0-1); EOSINOPHILS % (AUTO) 0.2 % (0-6); HEMATOCRIT 25.7 % (42.0-52.0); HEMOGLOBIN 8.6 g/dl (14.0-17.9); LYMPHOCYTES # (AUTO) 0.5 X10'3 (1.1-4.8); MEAN CORPUSCULAR HEMOGLOBIN 34.6 PG (27.0-31.0); MEAN CORPUSCULAR HGB CONC 33.7 % (33.0-36.5); MEAN CORPUSCULAR VOLUME 102.6 FL (78-98); MEAN PLATELET VOLUME 8.7 FL (7.4-10.4); MONOCYTES # (AUTO) 0.1 X10'3 (0-0.9); MONOCYTES % (AUTO) 1.4 % (2-12); NEUTROPHILS # (AUTO) 6.4 X10'3 (1.8-7.7); NEUTROPHILS % (AUTO) 90.8 % (42-75); PLATELET COUNT 94 X10'3 (140-440); RED CELL DISTRIBUTION WIDTH 18.5 % (11.5-14.5)
[2018-08-12 23:32] LABS: PHOSPHORUS 3.3 MG/DL (2.3-4.5)
[2018-08-13] VITALS (22 sets, daily range): BP systolic 94–147; BP diastolic 50–73
[2018-08-13] MEDS: pantoprazole 40MG/NS 100ML BAG 100 ML IV SCH ×2 (00:54→05:18)
[2018-08-13] MEDS: FENTANYL-0.9 % NACL/PF 100 ML IV PRN (00:55)
[2018-08-13] MEDS: NORepinephrine 8mg/ 250ml NS 250 ML IV PRN (03:40)
[2018-08-13] MEDS: piperacillin/tazo 3.375gm/50ml 50 ML IV SCH ×3 (03:41→14:13)
[2018-08-13] MEDS: mineral oil/petrolatum ophthal oint EACHEYE SCH ×4 (03:41→21:25)
[2018-08-13 03:51] LABS: BASOPHILS % (AUTO) 0.1 % (0-1); EOSINOPHILS # (AUTO) 0.1 X10'3 (0-0.9); EOSINOPHILS % (AUTO) 0.7 % (0-6); HEMATOCRIT 26.4 % (42.0-52.0); HEMOGLOBIN 8.7 g/dl (14.0-17.9); LYMPHOCYTES # (AUTO) 0.6 X10'3 (1.1-4.8); LYMPHOCYTES % (AUTO) 6.1 % (21-51); MEAN CORPUSCULAR HEMOGLOBIN 33.8 PG (27.0-31.0); MEAN CORPUSCULAR HGB CONC 32.9 % (33.0-36.5); MEAN CORPUSCULAR VOLUME 102.8 FL (78-98); MEAN PLATELET VOLUME 8.2 FL (7.4-10.4); MONOCYTES # (AUTO) 0.2 X10'3 (0-0.9); MONOCYTES % (AUTO) 2.2 % (2-12); NEUTROPHILS # (AUTO) 8.2 X10'3 (1.8-7.7); NEUTROPHILS % (AUTO) 90.9 % (42-75); PLATELET COUNT 91 X10'3 (140-440); RED BLOOD COUNT 2.57 X10'6 (4.70-6.10); RED CELL DISTRIBUTION WIDTH 18.4 % (11.5-14.5)
[2018-08-13 04:04] LABS: ALANINE AMINOTRANSFERASE 65 U/L (12-78); ALBUMIN 2.1 G/DL (3.4-5.0); ALBUMIN/GLOBULIN RATIO 1.1 (1.1-1.5); ALKALINE PHOSPHATASE 26 IU/L (46-116); ANION GAP 8 (8-16); ASPARTATE AMINO TRANSFERASE 91 U/L (10-37); BLOOD UREA NITROGEN 63 MG/DL (7-18); CALCIUM 7.2 MG/DL (8.5-10.1); CHLORIDE 109 MMOL/L (99-107); GLUCOSE 160 MG/DL (70-104); POTASSIUM 4.3 MMOL/L (3.5-5.1); SODIUM 142 MMOL/L (135-145); TOTAL CARBON DIOXIDE 25.4 MMOL/L (24-32); eGFR 13 ML/MIN
[2018-08-13 04:35] LABS: ABG BASE EXCESS 0.6 mmol/L (-2.0-3.0); ABG HCO3 26.4 mmol/L (22.0-26.0); ABG OXYGEN SATURATION 97.8 % (95-98); ABG PCO2 (T) 46.8 mmHg (35.0-48.0); ABG PH (T) 7.367 (7.350-7.450); ABG PO2 (T) 115.9 mmHg (83-108); FCOHb 0.2 % (0.5-1.5); FMetHb 0.3 % (0.3-1.12); FO2Hb 97.3 % (94-100); MINUTE VOLUME 10 L/min; PATIENT TEMPERATURE 36.7; PEEP 5 cm H2O; RESPIRATORY RATE 16 b/min; RESPIRATORY RATE (OBSERVED) 17 b/min; TIDAL VOLUME 500 mL; TOTAL HEMOGLOBIN 9.9 G/dl (14.0-18.0)
[2018-08-13] MEDS: midazolam 100mg in NS 100ml 100 ML IV PRN (05:18)
[2018-08-13] MEDS: sodium bicarbonate (8.4%) inj. 100 MEQ in dextrose 5%-water 1,000 ML IV SCH (05:20)
--- NOTE | 2018-08-13 06:34 | NUR ---
Problems reprioritized. Patient report given, questions answered & plan of care reviewed with Madison GOMEZ.
[2018-08-13 07:10] LABS: ANISOCYTOSIS 2+; PLATELET ESTIMATE DECREASED; TOTAL CELLS COUNTED 100
[2018-08-13] MEDS: metroNIDAZOLE-Flagyl 500mg/NS 100 ML IV SCH (08:00)
[2018-08-13] MEDS: levoFLOXACIN-Levaquin 750MG/D5 150 ML IV SCH (08:00)
[2018-08-13] MEDS: K and/or MAG REPLACEMENT MC SCH (08:00)
[2018-08-13 10:34] LABS: BASOPHILS % (AUTO) 0.3 % (0-1); EOSINOPHILS # (AUTO) 0.1 X10'3 (0-0.9); EOSINOPHILS % (AUTO) 1.1 % (0-6); HEMATOCRIT 26.5 % (42.0-52.0); HEMOGLOBIN 8.9 g/dl (14.0-17.9); LYMPHOCYTES # (AUTO) 0.6 X10'3 (1.1-4.8); LYMPHOCYTES % (AUTO) 7.4 % (21-51); MEAN CORPUSCULAR HEMOGLOBIN 34.5 PG (27.0-31.0); MEAN CORPUSCULAR HGB CONC 33.8 % (33.0-36.5); MEAN CORPUSCULAR VOLUME 102.1 FL (78-98); MEAN PLATELET VOLUME 8.3 FL (7.4-10.4); MONOCYTES # (AUTO) 0.2 X10'3 (0-0.9); MONOCYTES % (AUTO) 2.4 % (2-12); NEUTROPHILS # (AUTO) 7.8 X10'3 (1.8-7.7); NEUTROPHILS % (AUTO) 88.8 % (42-75); PLATELET COUNT 90 X10'3 (140-440); RED BLOOD COUNT 2.59 X10'6 (4.70-6.10); RED CELL DISTRIBUTION WIDTH 18.3 % (11.5-14.5); WHITE BLOOD COUNT 8.8 X10'3 (4.5-11.0)
[2018-08-13 10:51] LABS: ALANINE AMINOTRANSFERASE 65 U/L (12-78); ALBUMIN 2.1 G/DL (3.4-5.0); ALBUMIN/GLOBULIN RATIO 1.1 (1.1-1.5); ALKALINE PHOSPHATASE 29 IU/L (46-116); ANION GAP 9 (8-16); ASPARTATE AMINO TRANSFERASE 92 U/L (10-37); BILIRUBIN,TOTAL 0.9 MG/DL (0.1-1.0); BLOOD UREA NITROGEN 63 MG/DL (7-18); BUN/CREATININE RATIO 13.1 (5.4-32.0); CALCIUM 7.3 MG/DL (8.5-10.1); CHLORIDE 107 MMOL/L (99-107); CREATININE 4.82 MG/DL (0.60-1.10); GLUCOSE 148 MG/DL (70-104); MAGNESIUM 1.9 MG/DL (1.5-2.4); PHOSPHORUS 3.5 MG/DL (2.3-4.5); POTASSIUM 4.1 MMOL/L (3.5-5.1); SODIUM 143 MMOL/L (135-145); TOTAL CARBON DIOXIDE 26.7 MMOL/L (24-32); TOTAL PROTEIN 4.1 G/DL (6.4-8.2); eGFR 12 ML/MIN
[2018-08-13 11:57] LABS: ANISOCYTOSIS 2+; PLATELET ESTIMATE DECREASED; TOTAL CELLS COUNTED 100
[2018-08-13 13:18] LABS: CLARITY,URINE CLEAR (Clear); COLOR,URINE YELLOW (Yellow); GLUCOSE, URINE NEGATIVE (Neg); KETONES,URINE NEGATIVE (Neg); LEUKOCYTE ESTERASE ,URINE TRACE (Neg); NITRITES, URINE NEGATIVE (Neg); OCCULT BLOOD,URINE LARGE (Neg); PROTEIN,URINE 100 mg/dl (Neg); UROBILINOGEN,URINE 0.2 E.U/dL (0.2-1.0)
[2018-08-13 13:48] LABS: UA COLLECTION TYPE FOLEY CATH
[2018-08-13 13:54] LABS: AMORPHOUS URATES 1+; BACTERIA,URINE NONE SEEN /HPF (Neg); SQUAMOUS EPITHELIAL CELL,UR FEW /LPF (FEW)
[2018-08-13] MEDS: vasopressin inj. 60 UNIT in normal saline 100ml IV soln 97 ML IV SCH (14:16)
[2018-08-13 14:21] LABS: URINE AMPHETAMINE SCREEN NEGATIVE (Neg); URINE BARBITUATE SCREEN NEGATIVE (Neg); URINE BENZODIAZEPINES SCREEN POSITIVE (Neg); URINE CANNABINOID SCREEN NEGATIVE (Neg); URINE COCAINE SCREEN NEGATIVE (Neg); URINE METHADONE SCREEN NEGATIVE (Neg); URINE OPIATE SCREEN POSITIVE (Neg); URINE PHENCYCLIDINE SCREEN NEGATIVE (Neg)
--- NOTE | 2018-08-13 15:00 | NUR ---
Patient is intubated. Had presented to ED for abdominal pain, n/v unable to eat. Per H&P patient was constipated for three days and had loose stools, h/o 7 shots of vodka daily, CT had revealed colonic thickening. Patient is s/p exploratory laparotomy, colectomy and colostomy on 08/11 and s/p repeat laparotomy, removal of lap sponges, and ileostomy on 08/12 d/t gangrenous colitis. Terminal ileum viable per surgeon note. Recommend: 1. IF to receive tube feeding for nutrition support while intubated recommend starting at 10 ml/hr and advance q 8 by 10 ml as tolerated to goal rate of 75 ml/hr using Vital AF. Noted that patient is receiving vasopressors and MAP is above 60 today. 2. IF to receive TPN for nutrition support while intubated recommend Clinimix E 5/15 with 100 ml intralipids at 120 ml/hr to meet nutrition needs. 3. Consider banana bag while intubated in view of h/o EtOH. When extubated and receiving PO diet consider providing thiamine, folic acid, MVM. 4. Patient will need written ileostomy education handout with verbal review. Addendum: 08/13/18 at [address] Amended: Links added.
[2018-08-13 15:14] LABS: UA EOSINOPHILS NO EOS /HPF
[2018-08-13] MEDS: normal saline 1000ml 1,000 ML IV SCH ×2 (15:21→23:02)
--- NOTE | 2018-08-13 18:30 | NUR ---
Patient in room CICU 2008. I have received report from Madison GOMEZ and had the opportunity to ask questions and assume patient care.
[2018-08-13] MEDS: famotidine/PF 10 mg/ml inj IV SCH (21:25)
[2018-08-13] MEDS: piperacillin-tazo 2.25gm/50ml 50 ML IV SCH (21:28)
[2018-08-13 22:01] LABS: BASOPHILS # (AUTO) 0.1 X10'3 (0-0.2); BASOPHILS % (AUTO) 0.6 % (0-1); EOSINOPHILS # (AUTO) 0.2 X10'3 (0-0.9); HEMATOCRIT 27.8 % (42.0-52.0); HEMOGLOBIN 9.3 g/dl (14.0-17.9); LYMPHOCYTES # (AUTO) 0.6 X10'3 (1.1-4.8); LYMPHOCYTES % (AUTO) 6.7 % (21-51); MEAN CORPUSCULAR HEMOGLOBIN 34.5 PG (27.0-31.0); MEAN CORPUSCULAR HGB CONC 33.5 % (33.0-36.5); MEAN CORPUSCULAR VOLUME 102.8 FL (78-98); MEAN PLATELET VOLUME 9.2 FL (7.4-10.4); MONOCYTES # (AUTO) 0.4 X10'3 (0-0.9); NEUTROPHILS # (AUTO) 7.8 X10'3 (1.8-7.7); NEUTROPHILS % (AUTO) 86.7 % (42-75); PLATELET COUNT 73 X10'3 (140-440); RED BLOOD COUNT 2.71 X10'6 (4.70-6.10); RED CELL DISTRIBUTION WIDTH 17.8 % (11.5-14.5); WHITE BLOOD COUNT 8.9 X10'3 (4.5-11.0)
[2018-08-13 22:17] LABS: ALANINE AMINOTRANSFERASE 74 U/L (12-78); ALBUMIN/GLOBULIN RATIO 0.9 (1.1-1.5); ALKALINE PHOSPHATASE 44 IU/L (46-116); ANION GAP 10 (8-16); ASPARTATE AMINO TRANSFERASE 104 U/L (10-37); BILIRUBIN,TOTAL 0.9 MG/DL (0.1-1.0); BLOOD UREA NITROGEN 69 MG/DL (7-18); BUN/CREATININE RATIO 12.4 (5.4-32.0); CALCIUM 7.7 MG/DL (8.5-10.1); CHLORIDE 107 MMOL/L (99-107); CREATININE 5.55 MG/DL (0.60-1.10); GLUCOSE 96 MG/DL (70-104); MAGNESIUM 1.9 MG/DL (1.5-2.4); POTASSIUM 4.5 MMOL/L (3.5-5.1); SODIUM 143 MMOL/L (135-145); TOTAL CARBON DIOXIDE 25.6 MMOL/L (24-32); TOTAL PROTEIN 4.2 G/DL (6.4-8.2); eGFR 10 ML/MIN
[2018-08-13 22:33] LABS: TOTAL CELLS COUNTED 100
[2018-08-13 22:35] LABS: ANISOCYTOSIS 2+; PLATELET ESTIMATE DECREASED
[2018-08-14] VITALS (24 sets, daily range): BP systolic 92–153; BP diastolic 53–82
[2018-08-14] MEDS: piperacillin-tazo 2.25gm/50ml 50 ML IV SCH ×4 (02:07→20:25)
[2018-08-14] MEDS: metroNIDAZOLE-Flagyl 500mg/NS 100 ML IV SCH ×3 (02:07→07:43)
[2018-08-14] MEDS: mineral oil/petrolatum ophthal oint EACHEYE SCH ×4 (02:07→20:25)
[2018-08-14 02:23] LABS: BASOPHILS % (AUTO) 0.2 % (0-1); EOSINOPHILS % (AUTO) 0 % (0-6); HEMATOCRIT 27.7 % (42.0-52.0); HEMOGLOBIN 9.2 g/dl (14.0-17.9); LYMPHOCYTES # (AUTO) 0.6 X10'3 (1.1-4.8); LYMPHOCYTES % (AUTO) 5.9 % (21-51); MEAN CORPUSCULAR HEMOGLOBIN 34.3 PG (27.0-31.0); MEAN CORPUSCULAR HGB CONC 33.3 % (33.0-36.5); MEAN CORPUSCULAR VOLUME 103.1 FL (78-98); MONOCYTES # (AUTO) 0.3 X10'3 (0-0.9); MONOCYTES % (AUTO) 3.3 % (2-12); NEUTROPHILS # (AUTO) 8.7 X10'3 (1.8-7.7); NEUTROPHILS % (AUTO) 90.6 % (42-75); PLATELET COUNT 72 X10'3 (140-440); RED BLOOD COUNT 2.69 X10'6 (4.70-6.10); RED CELL DISTRIBUTION WIDTH 17.7 % (11.5-14.5); WHITE BLOOD COUNT 9.6 X10'3 (4.5-11.0)
[2018-08-14 02:37] LABS: ALANINE AMINOTRANSFERASE 76 U/L (12-78); ALBUMIN/GLOBULIN RATIO 0.9 (1.1-1.5); ALKALINE PHOSPHATASE 43 IU/L (46-116); ANION GAP 10 (8-16); ASPARTATE AMINO TRANSFERASE 97 U/L (10-37); BILIRUBIN,TOTAL 0.9 MG/DL (0.1-1.0); BLOOD UREA NITROGEN 73 MG/DL (7-18); BUN/CREATININE RATIO 12.8 (5.4-32.0); CALCIUM 7.7 MG/DL (8.5-10.1); CHLORIDE 108 MMOL/L (99-107); CREATININE 5.72 MG/DL (0.60-1.10); GLUCOSE 99 MG/DL (70-104); MAGNESIUM 1.8 MG/DL (1.5-2.4); PHOSPHORUS 4.3 MG/DL (2.3-4.5); POTASSIUM 4.6 MMOL/L (3.5-5.1); SODIUM 142 MMOL/L (135-145); TOTAL CARBON DIOXIDE 24.1 MMOL/L (24-32); TOTAL PROTEIN 4.2 G/DL (6.4-8.2); eGFR 10 ML/MIN
[2018-08-14 02:56] LABS: TOTAL CELLS COUNTED 100
[2018-08-14 02:57] LABS: ANISOCYTOSIS 2+; PLATELET ESTIMATE DECREASED
[2018-08-14 03:25] LABS: ABG BASE EXCESS -1.8 mmol/L (-2.0-3.0); ABG HCO3 23.6 mmol/L (22.0-26.0); ABG OXYGEN SATURATION 97.8 % (95-98); ABG PCO2 (T) 42.2 mmHg (35.0-48.0); ABG PH (T) 7.364 (7.350-7.450); ABG PO2 (T) 109.2 mmHg (83-108); FCOHb 0.2 % (0.5-1.5); FMetHb 0.3 % (0.3-1.12); FO2Hb 97.3 % (94-100); MINUTE VOLUME 9 L/min; PATIENT TEMPERATURE 36.5; PEEP 5 cm H2O; RESPIRATORY RATE 16 b/min; RESPIRATORY RATE (OBSERVED) 16 b/min; TIDAL VOLUME 500 mL
[2018-08-14] MEDS: normal saline 1000ml 1,000 ML IV SCH ×4 (04:10→23:02)
[2018-08-14] MEDS: midazolam 100mg in NS 100ml 100 ML IV PRN (05:42)
--- NOTE | 2018-08-14 06:23 | NUR ---
Problems reprioritized. Patient report given, questions answered & plan of care reviewed with Edita GOMEZ.
--- NOTE | 2018-08-14 06:30 | NUR ---
Patient in room CICU 2007. I have received report from Dung GOMEZ and had the opportunity to ask questions and assume patient care.
[2018-08-14] MEDS: famotidine/PF 10 mg/ml inj IV SCH ×2 (07:43→20:25)
[2018-08-14] MEDS: NORepinephrine 8mg/ 250ml NS 250 ML IV PRN (07:45)
[2018-08-14] MEDS: K and/or MAG REPLACEMENT MC SCH (07:45)
[2018-08-14 11:57] LABS: BASOPHILS % (AUTO) 0.6 % (0-1); EOSINOPHILS # (AUTO) 0.2 X10'3 (0-0.9); EOSINOPHILS % (AUTO) 2.5 % (0-6); HEMATOCRIT 25.4 % (42.0-52.0); HEMOGLOBIN 8.5 g/dl (14.0-17.9); LYMPHOCYTES # (AUTO) 0.5 X10'3 (1.1-4.8); LYMPHOCYTES % (AUTO) 5.3 % (21-51); MEAN CORPUSCULAR HEMOGLOBIN 34.4 PG (27.0-31.0); MEAN CORPUSCULAR HGB CONC 33.5 % (33.0-36.5); MEAN CORPUSCULAR VOLUME 102.9 FL (78-98); MEAN PLATELET VOLUME 9.6 FL (7.4-10.4); MONOCYTES # (AUTO) 0.3 X10'3 (0-0.9); MONOCYTES % (AUTO) 3.9 % (2-12); NEUTROPHILS # (AUTO) 7.5 X10'3 (1.8-7.7); NEUTROPHILS % (AUTO) 87.7 % (42-75); PLATELET COUNT 64 X10'3 (140-440); RED BLOOD COUNT 2.47 X10'6 (4.70-6.10); RED CELL DISTRIBUTION WIDTH 17.8 % (11.5-14.5); WHITE BLOOD COUNT 8.6 X10'3 (4.5-11.0)
[2018-08-14 12:11] LABS: ALANINE AMINOTRANSFERASE 71 U/L (12-78); ALBUMIN 1.7 G/DL (3.4-5.0); ALBUMIN/GLOBULIN RATIO 0.8 (1.1-1.5); ALKALINE PHOSPHATASE 50 IU/L (46-116); ANION GAP 12 (8-16); ASPARTATE AMINO TRANSFERASE 90 U/L (10-37); BILIRUBIN,TOTAL 0.8 MG/DL (0.1-1.0); BLOOD UREA NITROGEN 73 MG/DL (7-18); BUN/CREATININE RATIO 12.8 (5.4-32.0); CALCIUM 7.2 MG/DL (8.5-10.1); CHLORIDE 110 MMOL/L (99-107); GLUCOSE 85 MG/DL (70-104); MAGNESIUM 1.7 MG/DL (1.5-2.4); PHOSPHORUS 4.2 MG/DL (2.3-4.5); POTASSIUM 4.3 MMOL/L (3.5-5.1); SODIUM 144 MMOL/L (135-145); TOTAL CARBON DIOXIDE 22.5 MMOL/L (24-32); TOTAL PROTEIN 3.9 G/DL (6.4-8.2); eGFR 10 ML/MIN
[2018-08-14 12:14] LABS: TOTAL CELLS COUNTED 100
[2018-08-14 12:15] LABS: ANISOCYTOSIS 2+; PLATELET ESTIMATE DECREASED
--- NOTE | 2018-08-14 13:46 | NUR ---
patient remains intubated and sedated, levophed has been off since 9 am and patient is still on vasopressin at .5 units an hour, BP is currently 121/56
--- NOTE | 2018-08-14 13:51 | NUR ---
TPN consult: Patient still intubated. Per MD note patient may have bilateral pleural effusions. No tube feedings yet. When patient is extubated PO diet resumed recommend low fiber in view of s/p GI surgery. Until bowel functions returns, recommend TPN with recs below. Prior note: Patient is intubated. Had presented to ED for abdominal pain, n/v unable to eat. Per H&P patient was constipated for three days and had loose stools, h/o 7 shots of vodka daily, CT had revealed colonic thickening. Patient is s/p exploratory laparotomy, colectomy and colostomy on 08/11 and s/p repeat laparotomy, removal of lap sponges, and ileostomy on 08/12 d/t gangrenous colitis. Terminal ileum viable per surgeon note. Recommend: 1. TPN using Clinimix E 5/15 with 100 ml intralipids at 100 ml/hr will provide 2400 ml volume, 2079 cals, 114 gm protein, and 2.9 mg/kg/CHO. 2. Prealbumin and TG q /, daily weights 3. Consider banana bag while intubated in view of h/o EtOH. When extubated and receiving PO diet consider providing thiamine, folic acid, MVM. 4. IF to receive tube feeding for nutrition support while intubated recommend starting at 10 ml/hr and advance q 8 by 10 ml as tolerated to goal rate of 75 ml/hr using Vital AF. Noted that patient is receiving vasopressors and MAP is above 60 today. 5. Patient will need written ileostomy education handout with verbal review. 6. When extubated, advance diet as medically indicated to low fiber Addendum: 08/14/18 at [address] Amended: Links added.
[2018-08-14] MEDS ORDERED: folic acid inj. 2 MG, thiamine inj. 100 MG, MVI, adult No.4 with vit. K 10 ML in dextro... IV SCH ×4 (14:00)
[2018-08-14] MEDS ORDERED: Dextrose 10%-water IV solution 1,000 ML IV PRN (14:43)
[2018-08-14] MEDS ORDERED: potassium Cl 20 mEq SR tablet PO PRN ×2 (14:45)
[2018-08-14] MEDS ORDERED: Neutra Phos packet PO PRN (14:45)
[2018-08-14] MEDS ORDERED: sodium phosphate inj. 15 MMOL in dextrose 5%-water 150 ML IV PRN (14:45)
[2018-08-14] MEDS ORDERED: magnesium 4gm in 100ml NS 100 ML IV PRN (14:45)
[2018-08-14] MEDS ORDERED: potassium Cl 40MEQ/250ML bag 250 ML IV PRN ×2 (14:45)
[2018-08-14] MEDS ORDERED: sodium phosphate inj. 30 MMOL in dextrose 5%-water 250 ML IV PRN (14:45)
[2018-08-14] MEDS ORDERED: magnesium Cl slow-release 64mg tablet PO PRN (14:45)
[2018-08-14] MEDS: K, MAG and/or Phos replacement - Verify level? MC SCH (16:00)
[2018-08-14 18:25] LABS: ALANINE AMINOTRANSFERASE 67 U/L (12-78); ALBUMIN 1.1 G/DL (3.4-5.0); ALBUMIN/GLOBULIN RATIO 0.4 (1.1-1.5); ALKALINE PHOSPHATASE 55 IU/L (46-116); ANION GAP 13 (8-16); ASPARTATE AMINO TRANSFERASE 77 U/L (10-37); BILIRUBIN,TOTAL 0.8 MG/DL (0.1-1.0); BLOOD UREA NITROGEN 74 MG/DL (7-18); BUN/CREATININE RATIO 13.1 (5.4-32.0); CHLORIDE 111 MMOL/L (99-107); CREATININE 5.64 MG/DL (0.60-1.10); GLUCOSE 75 MG/DL (70-104); MAGNESIUM 1.6 MG/DL (1.5-2.4); POTASSIUM 4.1 MMOL/L (3.5-5.1); PREALBUMIN 7.2 MG/DL (19-36); SODIUM 145 MMOL/L (135-145); TOTAL CARBON DIOXIDE 21.3 MMOL/L (24-32); TOTAL PROTEIN 3.6 G/DL (6.4-8.2); TRIGLYCERIDES 67 MG/DL (20-135); eGFR 10 ML/MIN
--- NOTE | 2018-08-14 18:30 | NUR ---
Patient in room CICU 2007. I have received report from Edita GOMEZ and had the opportunity to ask questions and assume patient care.
--- NOTE | 2018-08-14 18:32 | NUR ---
Problems reprioritized. Patient report given, questions answered & plan of care reviewed with Dung GOMEZ.
[2018-08-14] MEDS: fat emulsion IV 100 ML, MVI, adult No.4 with vit. K 10 ML, Trace element-5 inj. 1 ML in... IV SCH ×4 (20:25)
[2018-08-14] MEDS: FENTANYL-0.9 % NACL/PF 100 ML IV PRN (23:02)
[2018-08-15] VITALS (24 sets, daily range): BP systolic 102–173; BP diastolic 51–74
[2018-08-15] MEDS: piperacillin-tazo 2.25gm/50ml 50 ML IV SCH ×4 (01:46→19:30)
[2018-08-15 02:21] LABS: ALANINE AMINOTRANSFERASE 68 U/L (12-78); ALBUMIN 1.6 G/DL (3.4-5.0); ALBUMIN/GLOBULIN RATIO 0.7 (1.1-1.5); ALKALINE PHOSPHATASE 53 IU/L (46-116); ANION GAP 11 (8-16); ASPARTATE AMINO TRANSFERASE 73 U/L (10-37); BILIRUBIN,TOTAL 0.8 MG/DL (0.1-1.0); BLOOD UREA NITROGEN 83 MG/DL (7-18); BUN/CREATININE RATIO 12.5 (5.4-32.0); CALCIUM 7.5 MG/DL (8.5-10.1); CHLORIDE 108 MMOL/L (99-107); CREATININE 6.63 MG/DL (0.60-1.10); GLUCOSE 100 MG/DL (70-104); MAGNESIUM 1.8 MG/DL (1.5-2.4); PHOSPHORUS 3.7 MG/DL (2.3-4.5); POTASSIUM 4.1 MMOL/L (3.5-5.1); SODIUM 143 MMOL/L (135-145); TOTAL CARBON DIOXIDE 24.5 MMOL/L (24-32); TOTAL PROTEIN 3.9 G/DL (6.4-8.2); eGFR 8 ML/MIN
[2018-08-15] MEDS: mineral oil/petrolatum ophthal oint EACHEYE SCH ×4 (02:25→19:30)
[2018-08-15 02:38] LABS: HEMATOCRIT 26.2 % (42.0-52.0); HEMOGLOBIN 9.2 g/dl (14.0-17.9); RED BLOOD COUNT 2.59 X10'6 (4.70-6.10); WHITE BLOOD COUNT 8.3 X10'3 (4.5-11.0)
[2018-08-15 02:39] LABS: MEAN CORPUSCULAR HEMOGLOBIN 35.6 PG (27.0-31.0); MEAN CORPUSCULAR HGB CONC 35.1 % (33.0-36.5); MEAN CORPUSCULAR VOLUME 101.4 FL (78-98); MEAN PLATELET VOLUME 9.2 FL (7.4-10.4); MONOCYTES % (AUTO) 3.4 % (2-12); NEUTROPHILS % (AUTO) 86.2 % (42-75); RED CELL DISTRIBUTION WIDTH 16.2 % (11.5-14.5)
[2018-08-15 02:40] LABS: BASOPHILS % (AUTO) 0.6 % (0-1); EOSINOPHILS # (AUTO) 0.3 X10'3 (0-0.9); EOSINOPHILS % (AUTO) 3.7 % (0-6); LYMPHOCYTES # (AUTO) 0.5 X10'3 (1.1-4.8); MONOCYTES # (AUTO) 0.3 X10'3 (0-0.9); NEUTROPHILS # (AUTO) 7.2 X10'3 (1.8-7.7)
[2018-08-15 02:42] LABS: PLATELET COUNT 49 X10'3 (140-440)
[2018-08-15 02:46] LABS: TOTAL CELLS COUNTED 100
[2018-08-15 02:47] LABS: ANISOCYTOSIS 1+; PLATELET ESTIMATE DECREASED
[2018-08-15 03:40] LABS: ABG HCO3 21.5 mmol/L (22.0-26.0); ABG OXYGEN SATURATION 97.3 % (95-98); ABG PH (T) 7.346 (7.350-7.450); ABG PO2 (T) 100.9 mmHg (83-108); FCOHb 0.2 % (0.5-1.5); FMetHb 0.3 % (0.3-1.12); FO2Hb 96.8 % (94-100); MINUTE VOLUME 9 L/min; PATIENT TEMPERATURE 36.7; PEEP 5 cm H2O; RESPIRATORY RATE 16 b/min; RESPIRATORY RATE (OBSERVED) 16 b/min; TIDAL VOLUME 500 mL; TOTAL HEMOGLOBIN 9.4 G/dl (14.0-18.0)
[2018-08-15] MEDS: midazolam 100mg in NS 100ml 100 ML IV PRN (04:01)
[2018-08-15] MEDS: normal saline 1000ml 1,000 ML IV SCH ×3 (06:00→20:15)
--- NOTE | 2018-08-15 06:24 | NUR ---
Problems reprioritized. Patient report given, questions answered & plan of care reviewed with Edita GOMEZ.
--- NOTE | 2018-08-15 06:30 | NUR ---
Patient in room CICU 2007. I have received report from Dung GOMEZ and had the opportunity to ask questions and assume patient care.
[2018-08-15] MEDS: famotidine/PF 10 mg/ml inj IV SCH ×2 (07:55→19:30)
[2018-08-15] MEDS: K, MAG and/or Phos replacement - Verify level? MC SCH (08:00)
[2018-08-15] MEDS ORDERED: levoFLOXACIN-Levaquin 500mg/D5 100 ML IV SCH (08:00)
[2018-08-15 12:42] LABS: ALANINE AMINOTRANSFERASE 59 U/L (12-78); ALBUMIN 1.5 G/DL (3.4-5.0); ALBUMIN/GLOBULIN RATIO 0.7 (1.1-1.5); ALKALINE PHOSPHATASE 58 IU/L (46-116); ANION GAP 14 (8-16); ASPARTATE AMINO TRANSFERASE 59 U/L (10-37); BILIRUBIN,TOTAL 0.8 MG/DL (0.1-1.0); BLOOD UREA NITROGEN 79 MG/DL (7-18); BUN/CREATININE RATIO 11.7 (5.4-32.0); CALCIUM 7.2 MG/DL (8.5-10.1); CHLORIDE 111 MMOL/L (99-107); CREATININE 6.75 MG/DL (0.60-1.10); GLUCOSE 133 MG/DL (70-104); MAGNESIUM 1.7 MG/DL (1.5-2.4); POTASSIUM 3.7 MMOL/L (3.5-5.1); SODIUM 145 MMOL/L (135-145); TOTAL CARBON DIOXIDE 19.8 MMOL/L (24-32); TOTAL PROTEIN 3.7 G/DL (6.4-8.2); eGFR 8 ML/MIN
[2018-08-15 13:02] LABS: BASOPHILS # (AUTO) 0.1 X10'3 (0-0.2); BASOPHILS % (AUTO) 0.8 % (0-1); EOSINOPHILS # (AUTO) 0.3 X10'3 (0-0.9); EOSINOPHILS % (AUTO) 4.3 % (0-6); HEMATOCRIT 26.2 % (42.0-52.0); HEMOGLOBIN 9.1 g/dl (14.0-17.9); LYMPHOCYTES # (AUTO) 0.5 X10'3 (1.1-4.8); LYMPHOCYTES % (AUTO) 6.2 % (21-51); MEAN CORPUSCULAR HEMOGLOBIN 35.4 PG (27.0-31.0); MEAN CORPUSCULAR HGB CONC 34.7 % (33.0-36.5); MEAN CORPUSCULAR VOLUME 101.9 FL (78-98); MEAN PLATELET VOLUME 8.9 FL (7.4-10.4); MONOCYTES # (AUTO) 0.3 X10'3 (0-0.9); MONOCYTES % (AUTO) 3.9 % (2-12); NEUTROPHILS # (AUTO) 6.5 X10'3 (1.8-7.7); NEUTROPHILS % (AUTO) 84.8 % (42-75); RED BLOOD COUNT 2.57 X10'6 (4.70-6.10); RED CELL DISTRIBUTION WIDTH 15.9 % (11.5-14.5); WHITE BLOOD COUNT 7.7 X10'3 (4.5-11.0)
[2018-08-15 13:08] LABS: PLATELET COUNT 48 X10'3 (140-440)
--- NOTE | 2018-08-15 15:00 | NUR ---
updated Dr. Massey on patients urine output which picked up suddenly this afternoon and he said we can wait to see how much urine output picks up over the next 12 hours and see if there is improvement in the BUN and creatinine before dialysis is decided.
--- NOTE | 2018-08-15 17:06 | NUR ---
Dr. Massey said we were ok to go back to checking renal panels on this patient once per day again. Will pass on information in report to the oncoming RN
--- NOTE | 2018-08-15 18:20 | NUR ---
Problems reprioritized. Patient report given, questions answered & plan of care reviewed with Yeni GOMEZ.
[2018-08-15] MEDS: vasopressin inj. 60 UNIT in normal saline 100ml IV soln 97 ML IV SCH (18:45)
[2018-08-15 20:15] LABS: LYMPHOCYTES % (AUTO) 6.1 % (21-51)
--- NOTE | 2018-08-15 20:15 | NUR ---
imaging technician called to report that auto lymph percentage for this AM's CBC was entered in error and will update accurate percentage now.
[2018-08-16] VITALS (23 sets, daily range): BP systolic 108–193; BP diastolic 60–85
[2018-08-16] MEDS: mineral oil/petrolatum ophthal oint EACHEYE SCH ×4 (01:22→19:26)
[2018-08-16] MEDS: vasopressin inj. 60 UNIT in normal saline 100ml IV soln 97 ML IV SCH (01:22)
[2018-08-16] MEDS: piperacillin-tazo 2.25gm/50ml 50 ML IV SCH ×4 (01:23→19:26)
[2018-08-16] MEDS: normal saline 1000ml 1,000 ML IV SCH ×4 (03:29→21:53)
[2018-08-16] MEDS: fat emulsion IV 100 ML, MVI, adult No.4 with vit. K 10 ML, Trace element-5 inj. 1 ML in... IV SCH ×8 (03:29→22:02)
[2018-08-16 03:30] LABS: ABG BASE EXCESS -5.9 mmol/L (-2.0-3.0); ABG HCO3 19.6 mmol/L (22.0-26.0); ABG OXYGEN SATURATION 96.5 % (95-98); ABG PCO2 (T) 38.1 mmHg (35.0-48.0); ABG PH (T) 7.328 (7.350-7.450); ABG PO2 (T) 88.6 mmHg (83-108); FCOHb 0.2 % (0.5-1.5); FMetHb 0.3 % (0.3-1.12); PATIENT TEMPERATURE 36.9; PEEP 5 cm H2O; RESPIRATORY RATE 16 b/min; TIDAL VOLUME 500 mL; TOTAL HEMOGLOBIN 9.8 G/dl (14.0-18.0)
[2018-08-16 03:41] LABS: BASOPHILS % (AUTO) 0.3 % (0-1); EOSINOPHILS # (AUTO) 0.3 X10'3 (0-0.9); EOSINOPHILS % (AUTO) 4.1 % (0-6); HEMATOCRIT 26.2 % (42.0-52.0); HEMOGLOBIN 8.9 g/dl (14.0-17.9); LYMPHOCYTES # (AUTO) 0.5 X10'3 (1.1-4.8); LYMPHOCYTES % (AUTO) 6.6 % (21-51); MEAN CORPUSCULAR HEMOGLOBIN 34.8 PG (27.0-31.0); MEAN CORPUSCULAR VOLUME 102.3 FL (78-98); MEAN PLATELET VOLUME 9.5 FL (7.4-10.4); MONOCYTES # (AUTO) 0.5 X10'3 (0-0.9); MONOCYTES % (AUTO) 7.3 % (2-12); NEUTROPHILS # (AUTO) 5.8 X10'3 (1.8-7.7); NEUTROPHILS % (AUTO) 81.7 % (42-75); RED BLOOD COUNT 2.56 X10'6 (4.70-6.10); RED CELL DISTRIBUTION WIDTH 16.6 % (11.5-14.5); WHITE BLOOD COUNT 7.1 X10'3 (4.5-11.0)
[2018-08-16 03:46] LABS: ALANINE AMINOTRANSFERASE 54 U/L (12-78); ALBUMIN 1.5 G/DL (3.4-5.0); ALBUMIN/GLOBULIN RATIO 0.6 (1.1-1.5); ALKALINE PHOSPHATASE 65 IU/L (46-116); ANION GAP 14 (8-16); ASPARTATE AMINO TRANSFERASE 44 U/L (10-37); BILIRUBIN,TOTAL 0.8 MG/DL (0.1-1.0); BLOOD UREA NITROGEN 87 MG/DL (7-18); BUN/CREATININE RATIO 11.4 (5.4-32.0); CALCIUM 7.6 MG/DL (8.5-10.1); CHLORIDE 110 MMOL/L (99-107); CREATININE 7.64 MG/DL (0.60-1.10); GLUCOSE 146 MG/DL (70-104); MAGNESIUM 1.7 MG/DL (1.5-2.4); PHOSPHORUS 2.6 MG/DL (2.3-4.5); POTASSIUM 3.7 MMOL/L (3.5-5.1); PREALBUMIN 8.3 MG/DL (19-36); SODIUM 144 MMOL/L (135-145); TOTAL PROTEIN 4.1 G/DL (6.4-8.2); TRIGLYCERIDES 78 MG/DL (20-135); eGFR 7 ML/MIN
[2018-08-16 04:04] LABS: PLATELET COUNT 48 X10'3 (140-440)
--- NOTE | 2018-08-16 06:10 | NUR ---
Problems reprioritized. Patient report given, questions answered & plan of care reviewed with JASON Kohler.
--- NOTE | 2018-08-16 06:27 | NUR ---
Patient in room CICU 2007. I have received report from Yeni GOMEZ and had the opportunity to ask questions and assume patient care.
[2018-08-16] MEDS: famotidine/PF 10 mg/ml inj IV SCH ×2 (07:18→19:26)
[2018-08-16] MEDS: K, MAG and/or Phos replacement - Verify level? MC SCH (08:00)
--- NOTE | 2018-08-16 12:38 | NUR ---
TPN consult: Patient still intubated. Per MD note patient may have bilateral pleural effusions. No tube feedings yet. When patient is extubated PO diet resumed recommend low fiber in view of s/p GI surgery. TPN changed to non-E per MD. NG output none; will monitor for trickle feeds for additional gut stimulation. Recommend: 1. TPN using Clinimix E 01/16 with 100 ml intralipids at 100 ml/hr will provide 2400 ml volume, 2079 cals, 114 gm protein, and 2.9 mg/kg/CHO. 2. Prealbumin and TG q /, daily weights 3. Consider banana bag while intubated in view of h/o EtOH. When extubated and receiving PO diet consider providing thiamine, folic acid, MVM. 4. IF to receive tube feeding for nutrition support while intubated recommend starting at 10 ml/hr and advance q 8 by 10 ml as tolerated to goal rate of 75 ml/hr using Vital AF. Noted that patient is receiving vasopressors and MAP is above 60 today. 5. Patient will need written ileostomy education handout with verbal review. 6. When extubated, advance diet as medically indicated to low fiber Addendum: 08/16/18 at [address] Amended: Links added.
--- NOTE | 2018-08-16 18:25 | NUR ---
Patient in room CICU 2008. I have received report from JASON Kohler, and had the opportunity to ask questions and assume patient care.
--- NOTE | 2018-08-16 18:27 | NUR ---
Problems reprioritized. Patient report given, questions answered & plan of care reviewed with Yeni Ferrell.
[2018-08-16] MEDS ORDERED: labetalol 20mg/4ml (5mg/ml) syringe IV PRN (21:30)
--- NOTE | 2018-08-16 21:30 | NUR ---
Pt's BP via arterial line increasing, SBP 180's. SBP via automatic cuff is 160's. SOL Segura, notified. Order received for Labetalol.
[2018-08-16] MEDS: FENTANYL-0.9 % NACL/PF 100 ML IV PRN (21:45)
--- NOTE | 2018-08-16 21:46 | NUR ---
Labetalol given for HTN, SBP decreased to 160's for arterial line, SBP 120's via automatic cuff.
--- NOTE | 2018-08-16 22:15 | NUR ---
SBP via arterial line steadily increasing, SOL Segura, notified. No new orders received at this time, will continue to monitor.
[2018-08-17] VITALS (24 sets, daily range): BP systolic 124–190; BP diastolic 58–90
[2018-08-17] MEDS: mineral oil/petrolatum ophthal oint EACHEYE SCH ×4 (02:07→20:22)
[2018-08-17] MEDS: piperacillin-tazo 2.25gm/50ml 50 ML IV SCH ×4 (02:07→20:22)
[2018-08-17 03:12] LABS: BASOPHILS % (AUTO) 0.1 % (0-1); EOSINOPHILS # (AUTO) 0.3 X10'3 (0-0.9); HEMATOCRIT 27.2 % (42.0-52.0); HEMOGLOBIN 9.3 g/dl (14.0-17.9); LYMPHOCYTES # (AUTO) 0.5 X10'3 (1.1-4.8); LYMPHOCYTES % (AUTO) 7.7 % (21-51); MEAN CORPUSCULAR HEMOGLOBIN 34.9 PG (27.0-31.0); MEAN CORPUSCULAR VOLUME 102.7 FL (78-98); MEAN PLATELET VOLUME 10.1 FL (7.4-10.4); MONOCYTES # (AUTO) 0.8 X10'3 (0-0.9); MONOCYTES % (AUTO) 12.3 % (2-12); NEUTROPHILS # (AUTO) 5.1 X10'3 (1.8-7.7); NEUTROPHILS % (AUTO) 75.9 % (42-75); RED BLOOD COUNT 2.65 X10'6 (4.70-6.10); RED CELL DISTRIBUTION WIDTH 16.3 % (11.5-14.5); WHITE BLOOD COUNT 6.7 X10'3 (4.5-11.0)
[2018-08-17 03:20] LABS: ALANINE AMINOTRANSFERASE 38 U/L (12-78); ALBUMIN 1.5 G/DL (3.4-5.0); ALBUMIN/GLOBULIN RATIO 0.5 (1.1-1.5); ALKALINE PHOSPHATASE 63 IU/L (46-116); ANION GAP 14 (8-16); ASPARTATE AMINO TRANSFERASE 25 U/L (10-37); BILIRUBIN,TOTAL 0.7 MG/DL (0.1-1.0); BLOOD UREA NITROGEN 97 MG/DL (7-18); CALCIUM 7.6 MG/DL (8.5-10.1); CHLORIDE 109 MMOL/L (99-107); CREATININE 8.07 MG/DL (0.60-1.10); GLUCOSE 159 MG/DL (70-104); MAGNESIUM 1.5 MG/DL (1.5-2.4); PHOSPHORUS 2.2 MG/DL (2.3-4.5); POTASSIUM 3.7 MMOL/L (3.5-5.1); SODIUM 141 MMOL/L (135-145); TOTAL CARBON DIOXIDE 17.7 MMOL/L (24-32); TOTAL PROTEIN 4.3 G/DL (6.4-8.2); eGFR 7 ML/MIN
[2018-08-17 03:29] LABS: PLATELET COUNT 48 X10'3 (140-440)
[2018-08-17 03:45] LABS: ABG BASE EXCESS -9.1 mmol/L (-2.0-3.0); ABG HCO3 16.2 mmol/L (22.0-26.0); ABG OXYGEN SATURATION 96.4 % (95-98); ABG PH (T) 7.309 (7.350-7.450); ABG PO2 (T) 87.6 mmHg (83-108); FMetHb 0.3 % (0.3-1.12); FO2Hb 96.1 % (94-100); MINUTE VOLUME 15 L/min; PEEP 5 cm H2O; RESPIRATORY RATE 16 b/min; RESPIRATORY RATE (OBSERVED) 24 b/min; TIDAL VOLUME 500 mL; TOTAL HEMOGLOBIN 10.1 G/dl (14.0-18.0)
[2018-08-17] MEDS: normal saline 1000ml 1,000 ML IV SCH ×3 (05:20→20:22)
--- NOTE | 2018-08-17 05:50 | NUR ---
SUSANNE phos 2.2, within parameters for replacement. IV replacement requested from pharmacy. Vy, pharmacy, reports no IV replacement is available and recommends PO replacement.
--- NOTE | 2018-08-17 06:02 | NUR ---
Pt passed 100 mL dark green, mucoid stool from ileostomy.
--- NOTE | 2018-08-17 06:28 | NUR ---
Problems reprioritized. Patient report given, questions answered & plan of care reviewed with JASON Haro.
[2018-08-17] MEDS: famotidine/PF 10 mg/ml inj IV SCH ×2 (08:29→20:21)
[2018-08-17] MEDS: K, MAG and/or Phos replacement - Verify level? MC SCH (08:39)
--- NOTE | 2018-08-17 08:40 | NUR ---
pt phos is 2.2. per pharmacy we do not have IV phos replacement. pt is NPO on TPN s/p abdominal surgery x2. will discuss with Dr. Royal or Dr. Massey during rounds about replacing phos.
--- NOTE | 2018-08-17 09:00 | NUR ---
at bedside. RN able to get wedding band off with ultrasound jelly. no skin breakdown at this time. given wedding band. RT Cindi at bedside when wedding band given to .
--- NOTE | 2018-08-17 10:14 | NUR ---
pt receiving TPN Addendum: 08/17/18 at 1014 by Martin Mcgrath RN Amended: Links added.
[2018-08-17] MEDS: dexmedetomidin/NS 400mcg/100ml 100 ML IV SCH (11:27)
[2018-08-17] MEDS ORDERED: albuterol 2.5 mg/0.5ml nebule NEB PRN (11:30)
[2018-08-17] MEDS ORDERED: metoclopramide 5 mg/ml inj IV PRN (11:40)
--- NOTE | 2018-08-17 13:00 | NUR ---
back to bedside to visit. obviously upset, tearful. Another family member contacted via phone and said talked to Jacqueline over the phone and she said, "the doctors said there is nothing else they can do and they are going to remove the tube." later, approached this RN and said, "who do we need to talk to about getting the tube out." RN assured her that these decisions need to be discussed with the MD. Reported that the pt has been breathing on his own this am and things appear to be getting better. The appeared to understand that no changes needed to be made at this time and agreed to continue with plan of care.
--- NOTE | 2018-08-17 14:42 | NUR ---
Tube feeding consult. Per bedside RN patient had 100 ml stool output per ileostomy last night. Discussed with surgeon regarding starting tube feedings to provide high protein, low calorie formula appropriate for mechanical ventilation. Discussed with bedside recommending not weaning TPN until patient tolerating tube feeding at goal rate. Patient is receiving fentanyl and has been started on relistor and reglan today. Will continue to follow. Recommend: 1. Continue TPN using Clinimix non-E 01/16 with 100 ml intralipids at 100 ml/hr will provide 2400 ml volume, 2079 cals, 114 gm protein, and 2.9 mg/kg/CHO. Recommend to not wean TPN until tube feeding tolerated at goal. 2. Prealbumin and TG q /, daily weights 3. Continue banana bag while intubated in view of h/o EtOH. When extubated and receiving PO diet consider providing thiamine, folic acid, MVM. 4. Start tube feedings at 20 ml/hr and advance by 20 ml q 8 hours to goal rate of 65 ml/hr using Vital High Protein will provide total volume of 1560 ml, 1560 cals, 137 gm protein, and 1304 ml water, 1248 gm phosphorus, and 2496 mg potassium. 5. Patient will need written ileostomy education handout with verbal review. 6. When extubated, advance diet as medically indicated to low fiber Addendum: 08/17/18 at [address] Amended: Links added.
--- NOTE | 2018-08-17 15:00 | NUR ---
again comes to bedside, tearful and visibly upset. reassured her pt was still breathing on his own, and no decisions needed to be made at this time. Notified Dr. Massey that pt wanted to have conversation with MDs about patients wishes and plan of care.
[2018-08-17] MEDS: ipratropium/albuterol 3ml nebule IH SCH ×2 (15:22→21:04)
--- NOTE | 2018-08-17 18:25 | NUR ---
Patient in room CICU 2007. I have received report from Tahir GOMEZ, and had the opportunity to ask questions and assume patient care.
[2018-08-17] MEDS: fat emulsion IV 100 ML, MVI, adult No.4 with vit. K 10 ML, Trace element-5 inj. 1 ML in... IV SCH ×4 (18:45)
--- NOTE | 2018-08-17 18:46 | NUR ---
TPN bag id Dry, currently turned off. Pharmacy notified beings there is not a bag ready in the fridge. PT does have tube feel running, Vital HP. Will hang as soon as it becomes available.
--- NOTE | 2018-08-17 20:00 | NUR ---
PT resting with no s/s of distress noted at this time. VSS. PT is intubated and mechanically vented, tolerating settings well, O2 sat >97%. PT has TPN running @ 100ml/hr. TF is running @ 25ml/hr. PT has Drsg to midline ABD, CDI. Ileostomy with dark brown/green stool noted. DONTA to RLQ with serosanguineous drainage noted. Knox draining to gravity Bilat soft wrist restraints remain in place. Bed is locked and low. Will continue to monitor.
[2018-08-17] MEDS: rivaroxaban 20mg tablet PO SCH ×2 (21:00→21:46)
[2018-08-17] MEDS: budesonide 0.5mg/2ml UD nebule IH SCH (21:04)
[2018-08-18] VITALS (24 sets, daily range): BP systolic 113–172; BP diastolic 56–87
--- NOTE | 2018-08-18 | NUR ---
PT resting with no s/s of distress noted at this time. VSS. Bed is locked and low. Bilat soft wrist restraints remain in place. Will continue to monitor.
[2018-08-18] MEDS: mineral oil/petrolatum ophthal oint EACHEYE SCH ×4 (02:53→20:04)
[2018-08-18] MEDS: normal saline 1000ml 1,000 ML IV SCH ×3 (02:53→14:50)
[2018-08-18] MEDS: piperacillin-tazo 2.25gm/50ml 50 ML IV SCH ×4 (02:56→20:04)
[2018-08-18 03:29] LABS: ALANINE AMINOTRANSFERASE 24 U/L (12-78); ALBUMIN 1.3 G/DL (3.4-5.0); ALBUMIN/GLOBULIN RATIO 0.4 (1.1-1.5); ALKALINE PHOSPHATASE 71 IU/L (46-116); ANION GAP 18 (8-16); ASPARTATE AMINO TRANSFERASE 19 U/L (10-37); BILIRUBIN,TOTAL 0.5 MG/DL (0.1-1.0); BLOOD UREA NITROGEN 105 MG/DL (7-18); BUN/CREATININE RATIO 12.7 (5.4-32.0); CALCIUM 7.5 MG/DL (8.5-10.1); CHLORIDE 107 MMOL/L (99-107); CREATININE 8.26 MG/DL (0.60-1.10); GLUCOSE 210 MG/DL (70-104); PHOSPHORUS 2.3 MG/DL (2.3-4.5); POTASSIUM 3.8 MMOL/L (3.5-5.1); SODIUM 139 MMOL/L (135-145); TOTAL PROTEIN 4.2 G/DL (6.4-8.2); eGFR 6 ML/MIN
[2018-08-18 03:31] LABS: TOTAL CARBON DIOXIDE 13.8 MMOL/L (24-32)
[2018-08-18] MEDS: ipratropium/albuterol 3ml nebule IH SCH ×4 (03:33→20:45)
[2018-08-18 03:37] LABS: BASOPHILS % (AUTO) 0.2 % (0-1); EOSINOPHILS # (AUTO) 0.2 X10'3 (0-0.9); EOSINOPHILS % (AUTO) 3.4 % (0-6); HEMATOCRIT 26.4 % (42.0-52.0); HEMOGLOBIN 8.8 g/dl (14.0-17.9); LYMPHOCYTES # (AUTO) 0.4 X10'3 (1.1-4.8); LYMPHOCYTES % (AUTO) 7.2 % (21-51); MEAN CORPUSCULAR HGB CONC 33.4 % (33.0-36.5); MEAN CORPUSCULAR VOLUME 101.9 FL (78-98); MEAN PLATELET VOLUME 9.3 FL (7.4-10.4); MONOCYTES # (AUTO) 0.7 X10'3 (0-0.9); MONOCYTES % (AUTO) 11.6 % (2-12); NEUTROPHILS # (AUTO) 4.8 X10'3 (1.8-7.7); NEUTROPHILS % (AUTO) 77.6 % (42-75); PLATELET COUNT 51 X10'3 (140-440); RED BLOOD COUNT 2.59 X10'6 (4.70-6.10); RED CELL DISTRIBUTION WIDTH 16.2 % (11.5-14.5); WHITE BLOOD COUNT 6.2 X10'3 (4.5-11.0)
[2018-08-18 03:45] LABS: ABG BASE EXCESS -11.4 mmol/L (-2.0-3.0); ABG OXYGEN SATURATION 97.6 % (95-98); ABG PCO2 (T) 28.9 mmHg (35.0-48.0); ABG PO2 (T) 102.6 mmHg (83-108); FCOHb 0.3 % (0.5-1.5); FMetHb 0.3 % (0.3-1.12); MINUTE VOLUME 14 L/min; PATIENT TEMPERATURE 36.3; PEEP 5 cm H2O; RESPIRATORY RATE (OBSERVED) 18 b/min; TOTAL HEMOGLOBIN 9.5 G/dl (14.0-18.0)
[2018-08-18] MEDS: dexmedetomidin/NS 400mcg/100ml 100 ML IV SCH (04:43)
--- NOTE | 2018-08-18 06:33 | NUR ---
Problems reprioritized. Patient report given, questions answered & plan of care reviewed with Tahir RN.
[2018-08-18 07:31] LABS: MAGNESIUM 1.4 MG/DL (1.5-2.4)
[2018-08-18] MEDS: FENTANYL-0.9 % NACL/PF 100 ML IV PRN (07:59)
[2018-08-18] MEDS: K, MAG and/or Phos replacement - Verify level? MC SCH (08:00)
--- NOTE | 2018-08-18 08:00 | NUR ---
central line removed. Addendum: 08/18/18 at 1117 by Martin Mcgrath RN Amended: Links added.
--- NOTE | 2018-08-18 08:00 | NUR ---
upon assessment pt coughing and gagging. RN notes yellow bile appearing fluid backing up into tube feed. RN placed pt to suction and 400 ml removed. TF started 08/17. not tolerating at this time. will discuss with MD during rounds. Pt still on TPN at 100ml/hr (goal)
[2018-08-18] MEDS: multivitamins, therapeutics tablet PO SCH (08:51)
[2018-08-18] MEDS: folic acid 1mg tablet PO SCH (08:51)
[2018-08-18] MEDS: famotidine/PF 10 mg/ml inj IV SCH ×2 (08:52→20:04)
[2018-08-18] MEDS: nicotine 14mg patch - 24hr TD SCH (08:52)
[2018-08-18] MEDS: budesonide 0.5mg/2ml UD nebule IH SCH ×2 (09:25→20:45)
[2018-08-18] MEDS: albuterol 2.5 MG/3 ML nebule NEB PRN (09:25)
[2018-08-18] MEDS ORDERED: furosemide 10 MG/1 ML 10ml inj IV ONE (10:05)
--- NOTE | 2018-08-18 10:15 | NUR ---
Reassessment: Pt tolerating TPN at goal with TF running at 25 mL/hr with residuals 180-288. K remains WNL. Documented stool output 300 mL per I&O. Will continue to follow and monitor tolerance to nutrition support. Tube feeding consult. Per bedside RN patient had 100 ml stool output per ileostomy last night. Discussed with surgeon regarding starting tube feedings to provide high protein, low calorie formula appropriate for mechanical ventilation. Discussed with bedside recommending not weaning TPN until patient tolerating tube feeding at goal rate. Patient is receiving fentanyl and has been started on relistor and reglan today. Will continue to follow. Recommend: 1. Continue TPN using Clinimix non-E 01/16 with 100 ml intralipids at 100 ml/hr will provide 2400 ml volume, 2079 cals, 114 gm protein, and 2.9 mg/kg/CHO. Recommend to not wean TPN until tube feeding tolerated at goal. 2. Prealbumin and TG q M/, daily weights 3. Continue banana bag while intubated in view of h/o EtOH. When extubated and receiving PO diet consider providing thiamine, folic acid, MVM. 4. Start tube feedings at 20 ml/hr and advance by 20 ml q 8 hours to goal rate of 65 ml/hr using Vital High Protein will provide total volume of 1560 ml, 1560 cals, 137 gm protein, and 1304 ml water, 1248 gm phosphorus, and 2496 mg potassium. 5. Patient will need written ileostomy education handout with verbal review. 6. When extubated, advance diet as medically indicated to low fiber Addendum: 08/18/18 at [address] Amended: Links added.
--- NOTE | 2018-08-18 10:15 | NUR ---
Dr. Villa rounding this am, SEE MAR for orders. Discussed pt not tolerating TF at 25. Ok with restarting TF at 10 ml/hr. Also, MIV running at 100ml/hr discontinued per Dr. Villa. Pt given 60mg IVP lasix. will continue to monitor
[2018-08-18] MEDS: methylnaltrexone br 12mg/0.6ml inj***SubQ only SQ SCH (10:44)
[2018-08-18] MEDS: metoclopramide 5 mg/ml inj IV SCH ×3 (10:44→20:04)
[2018-08-18] MEDS: sodium bicarbonate 650mg tablet PO SCH ×2 (13:49→20:04)
[2018-08-18] MEDS ORDERED: dextrose ORAL solution 15 GM/59 ML bottle PO PRN ×2 (15:00)
[2018-08-18] MEDS ORDERED: dextrose 50%-water 50ml dispensing syringe IV PRN ×2 (15:00)
[2018-08-18] MEDS ORDERED: MESSAGE TO PHARMACY PO ONE (15:00)
[2018-08-18] MEDS ORDERED: glucagon, human recombinant 1mg kit SUBCUT PRN (15:00)
[2018-08-18 16:01] LABS: HEMOGLOBIN A1C 5.8 % (4.5-6.2)
--- NOTE | 2018-08-18 18:30 | NUR ---
Patient in room CICU 2008. I have received report from Tahir and had the opportunity to ask questions and assume patient care.
[2018-08-18] MEDS: fat emulsion IV 100 ML, MVI, adult No.4 with vit. K 10 ML, Trace element-5 inj. 1 ML in... IV SCH ×4 (18:51)
[2018-08-18] MEDS: rivaroxaban 20mg tablet PO SCH (20:04)
[2018-08-18] MEDS: insulin regular, human vial - multi-dose SQ SCH (20:14)
[2018-08-18] MEDS: insulin glargine (Lantus) pen - multi-dose SQ SCH (20:16)
[2018-08-19] VITALS (24 sets, daily range): BP systolic 115–189; BP diastolic 49–74
[2018-08-19] MEDS: dexmedetomidin/NS 400mcg/100ml 100 ML IV SCH ×2 (02:44→13:56)
[2018-08-19] MEDS: mineral oil/petrolatum ophthal oint EACHEYE SCH ×4 (02:44→21:59)
[2018-08-19] MEDS: insulin regular, human vial - multi-dose SQ SCH ×4 (02:49→22:12)
[2018-08-19] MEDS: piperacillin-tazo 2.25gm/50ml 50 ML IV SCH ×4 (02:55→22:01)
[2018-08-19] MEDS: metoclopramide 5 mg/ml inj IV SCH ×4 (02:55→22:00)
[2018-08-19] MEDS: ipratropium/albuterol 3ml nebule IH SCH ×4 (03:15→19:13)
[2018-08-19 03:26] LABS: ABG BASE EXCESS -12.8 mmol/L (-2.0-3.0); ABG HCO3 12.5 mmol/L (22.0-26.0); ABG PCO2 (T) 25.9 mmHg (35.0-48.0); ABG PH (T) 7.297 (7.350-7.450); ABG PO2 (T) 113.8 mmHg (83-108); FCOHb 0.3 % (0.5-1.5); FMetHb 0.1 % (0.3-1.12); FO2Hb 97.6 % (94-100); MINUTE VOLUME 15 L/min; PATIENT TEMPERATURE 36.2; PEEP 5 cm H2O; RESPIRATORY RATE (OBSERVED) 16 b/min; TOTAL HEMOGLOBIN 9.2 G/dl (14.0-18.0)
[2018-08-19 03:58] LABS: BASOPHILS % (AUTO) 0.1 % (0-1); EOSINOPHILS # (AUTO) 0.3 X10'3 (0-0.9); EOSINOPHILS % (AUTO) 4.9 % (0-6); HEMATOCRIT 25.8 % (42.0-52.0); HEMOGLOBIN 8.7 g/dl (14.0-17.9); LYMPHOCYTES # (AUTO) 0.5 X10'3 (1.1-4.8); LYMPHOCYTES % (AUTO) 7.8 % (21-51); MEAN CORPUSCULAR HEMOGLOBIN 34.5 PG (27.0-31.0); MEAN CORPUSCULAR HGB CONC 33.7 % (33.0-36.5); MEAN CORPUSCULAR VOLUME 102.4 FL (78-98); MEAN PLATELET VOLUME 9.2 FL (7.4-10.4); MONOCYTES # (AUTO) 0.7 X10'3 (0-0.9); NEUTROPHILS # (AUTO) 5.3 X10'3 (1.8-7.7); NEUTROPHILS % (AUTO) 77.2 % (42-75); PLATELET COUNT 62 X10'3 (140-440); RED BLOOD COUNT 2.52 X10'6 (4.70-6.10); RED CELL DISTRIBUTION WIDTH 15.9 % (11.5-14.5); WHITE BLOOD COUNT 6.9 X10'3 (4.5-11.0)
[2018-08-19 04:01] LABS: ALBUMIN 1.3 G/DL (3.4-5.0); ANION GAP 17 (8-16); BLOOD UREA NITROGEN 115 MG/DL (7-18); BUN/CREATININE RATIO 12.3 (5.4-32.0); CHLORIDE 105 MMOL/L (99-107); CREATININE 9.33 MG/DL (0.60-1.10); GLUCOSE 202 MG/DL (70-104); POTASSIUM 3.7 MMOL/L (3.5-5.1); SODIUM 136 MMOL/L (135-145); eGFR 6 ML/MIN
[2018-08-19 04:03] LABS: TOTAL CARBON DIOXIDE 14.1 MMOL/L (24-32)
[2018-08-19] MEDS: FENTANYL-0.9 % NACL/PF 100 ML IV PRN (05:32)
[2018-08-19] MEDS: multivitamins, therapeutics tablet PO SCH (07:31)
[2018-08-19] MEDS: methylnaltrexone br 12mg/0.6ml inj***SubQ only SQ SCH (07:31)
[2018-08-19] MEDS: folic acid 1mg tablet PO SCH (07:31)
[2018-08-19] MEDS: famotidine/PF 10 mg/ml inj IV SCH ×2 (07:32→22:00)
[2018-08-19] MEDS: sodium bicarbonate 650mg tablet PO SCH ×4 (07:32→22:01)
[2018-08-19 07:40] LABS: ANISOCYTOSIS 1+; PLATELET ESTIMATE DECREASED; TOTAL CELLS COUNTED 100
[2018-08-19] MEDS: K, MAG and/or Phos replacement - Verify level? MC SCH (08:00)
[2018-08-19] MEDS: nicotine 14mg patch - 24hr TD SCH (08:00)
[2018-08-19] MEDS: albuterol 2.5 MG/3 ML nebule NEB PRN (09:33)
[2018-08-19] MEDS: budesonide 0.5mg/2ml UD nebule IH SCH ×2 (09:33→19:13)
[2018-08-19] MEDS ORDERED: furosemide 10 MG/1 ML 10ml inj IV ONE (10:00)
--- NOTE | 2018-08-19 10:51 | NUR ---
please send precedex for this patient joselito hes almost out
--- NOTE | 2018-08-19 14:13 | NUR ---
please send TPN joselito
--- NOTE | 2018-08-19 14:16 | NUR ---
Malnutrition consult: Pt tolerating TPN non-E at goal; electrolytes normal. Tube feed held for high residuals w/ 175ml ileostomy output documented on 08/17. Receiving routine reglan/relistor and electrolyte replacements per protocol. Hx etoh on folic/MVI PO w/ MVI in TPN. Pt does not meet malnutrition criteria at this time given no severe weakness, wt loss, or edema present w/ BMI 31. Gustavo continue to monitor for enteral feeds tolerance post-op. Recommend: 1. Continue TPN using Clinimix non-E 01/16 with 100 ml intralipids at 100 ml/hr will provide 2400 ml volume, 2079 cals, 114 gm protein, and 2.9 mg/kg/CHO. Recommend to not wean TPN until tube feeding tolerated at goal. 2. Prealbumin and TG q /, daily weights 3. folic acid, MVM w/ TPN MVM in view of etoh hx; add thiamin if tolerating PO 4. Tube feedings at 20 ml/hr and advance by 20 ml q 8 hours to goal rate of 65 ml/hr using Vital High Protein will provide total volume of 1560 ml, 1560 cals, 137 gm protein, and 1304 ml water, 1248 gm phosphorus, and 2496 mg potassium. 5. Patient will need written ileostomy education handout with verbal review. 6. When extubated, advance diet as medically indicated to low fiber Addendum: 08/19/18 at [address] Amended: Links added.
[2018-08-19] MEDS: fat emulsion IV 100 ML, MVI, adult No.4 with vit. K 10 ML, Trace element-5 inj. 1 ML in... IV SCH ×4 (17:26)
--- NOTE | 2018-08-19 18:24 | NUR ---
Problems reprioritized. Patient report given, questions answered & plan of care reviewed with MAC RN.
--- NOTE | 2018-08-19 18:35 | NUR ---
Patient in room CICU 2008. I have received report from James and had the opportunity to ask questions and assume patient care.
[2018-08-19] MEDS: insulin glargine (Lantus) pen - multi-dose SQ SCH (22:13)
[2018-08-19] MEDS: rivaroxaban 20mg tablet PO SCH (22:39)
[2018-08-20] VITALS (24 sets, daily range): BP systolic 96–237; BP diastolic 42–88
[2018-08-20] MEDS: piperacillin-tazo 2.25gm/50ml 50 ML IV SCH ×4 (02:00→21:35)
[2018-08-20] MEDS: mineral oil/petrolatum ophthal oint EACHEYE SCH ×4 (02:00→21:35)
[2018-08-20] MEDS: insulin regular, human vial - multi-dose SQ SCH ×3 (02:00→21:46)
[2018-08-20] MEDS: metoclopramide 5 mg/ml inj IV SCH ×4 (02:00→21:35)
[2018-08-20] MEDS: ipratropium/albuterol 3ml nebule IH SCH ×4 (02:17→21:12)
[2018-08-20 03:31] LABS: BASOPHILS % (AUTO) 0.2 % (0-1); EOSINOPHILS # (AUTO) 0.3 X10'3 (0-0.9); EOSINOPHILS % (AUTO) 3.7 % (0-6); HEMATOCRIT 25.4 % (42.0-52.0); HEMOGLOBIN 8.7 g/dl (14.0-17.9); LYMPHOCYTES # (AUTO) 0.5 X10'3 (1.1-4.8); LYMPHOCYTES % (AUTO) 5.6 % (21-51); MEAN CORPUSCULAR HEMOGLOBIN 34.7 PG (27.0-31.0); MEAN CORPUSCULAR HGB CONC 34.5 % (33.0-36.5); MEAN CORPUSCULAR VOLUME 100.6 FL (78-98); MEAN PLATELET VOLUME 9.4 FL (7.4-10.4); MONOCYTES # (AUTO) 0.7 X10'3 (0-0.9); MONOCYTES % (AUTO) 7.2 % (2-12); NEUTROPHILS # (AUTO) 7.8 X10'3 (1.8-7.7); NEUTROPHILS % (AUTO) 83.3 % (42-75); PLATELET COUNT 86 X10'3 (140-440); RED BLOOD COUNT 2.52 X10'6 (4.70-6.10); RED CELL DISTRIBUTION WIDTH 15.9 % (11.5-14.5); WHITE BLOOD COUNT 9.3 X10'3 (4.5-11.0)
[2018-08-20 03:55] LABS: ABG BASE EXCESS -13.5 mmol/L (-2.0-3.0); ABG HCO3 11.9 mmol/L (22.0-26.0); ABG OXYGEN SATURATION 97.9 % (95-98); ABG PCO2 (T) 26.4 mmHg (35.0-48.0); ABG PH (T) 7.272 (7.350-7.450); FCOHb 0.3 % (0.5-1.5); FMetHb 0.2 % (0.3-1.12); FO2Hb 97.4 % (94-100); MINUTE VOLUME 16 L/min; PATIENT TEMPERATURE 37.1; PEEP 5 cm H2O; RESPIRATORY RATE (OBSERVED) 20 b/min; TIDAL VOLUME 801 mL; TOTAL HEMOGLOBIN 9.4 G/dl (14.0-18.0)
[2018-08-20 04:03] LABS: ALANINE AMINOTRANSFERASE 15 U/L (12-78); ALBUMIN 1.3 G/DL (3.4-5.0); ALBUMIN/GLOBULIN RATIO 0.4 (1.1-1.5); ALKALINE PHOSPHATASE 105 IU/L (46-116); ANION GAP 18 (8-16); ASPARTATE AMINO TRANSFERASE 17 U/L (10-37); BILIRUBIN,TOTAL 0.5 MG/DL (0.1-1.0); BLOOD UREA NITROGEN 128 MG/DL (7-18); BUN/CREATININE RATIO 13.5 (5.4-32.0); CALCIUM 8.2 MG/DL (8.5-10.1); CHLORIDE 103 MMOL/L (99-107); CREATININE 9.49 MG/DL (0.60-1.10); GLUCOSE 148 MG/DL (70-104); MAGNESIUM 1.3 MG/DL (1.5-2.4); PHOSPHORUS 4.2 MG/DL (2.3-4.5); POTASSIUM 3.8 MMOL/L (3.5-5.1); PREALBUMIN 14.5 MG/DL (19-36); SODIUM 133 MMOL/L (135-145); TOTAL PROTEIN 4.7 G/DL (6.4-8.2); TRIGLYCERIDES 86 MG/DL (20-135); eGFR 5 ML/MIN
[2018-08-20 04:17] LABS: TOTAL CARBON DIOXIDE 12.4 MMOL/L (24-32)
[2018-08-20 06:15] LABS: UREA NITROGEN 24HR,URINE 4.6 GM/24HR (7-20)
--- NOTE | 2018-08-20 07:00 | NUR ---
Patient in room CICU 2007. I have received report from [facility] and had the opportunity to ask questions and assume patient care.
[2018-08-20] MEDS: famotidine/PF 10 mg/ml inj IV SCH ×2 (08:06→21:35)
[2018-08-20] MEDS: methylnaltrexone br 12mg/0.6ml inj***SubQ only SQ SCH (08:06)
[2018-08-20] MEDS: multivitamins, therapeutics tablet PO SCH (08:07)
[2018-08-20] MEDS: folic acid 1mg tablet PO SCH (08:07)
[2018-08-20] MEDS: sodium bicarbonate 650mg tablet PO SCH ×4 (08:07→21:00)
[2018-08-20] MEDS: K, MAG and/or Phos replacement - Verify level? MC SCH (08:08)
[2018-08-20] MEDS: nicotine 14mg patch - 24hr TD SCH (08:09)
[2018-08-20] MEDS: dexmedetomidin/NS 400mcg/100ml 100 ML IV SCH ×2 (09:23→19:18)
[2018-08-20] MEDS: FENTANYL-0.9 % NACL/PF 100 ML IV PRN (09:24)
--- NOTE | 2018-08-20 09:30 | NUR ---
Dr Ozzy chowdhury, spoke with family, plan is to place a catrachita cath and begin dialysis today.
[2018-08-20] MEDS: budesonide 0.5mg/2ml UD nebule IH SCH ×2 (09:46→21:12)
[2018-08-20] MEDS ORDERED: furosemide 10 MG/1 ML 10ml inj IV ONE (10:00)
[2018-08-20] MEDS ORDERED: FUROSEMIDE IV ONE (10:09)
[2018-08-20] MEDS ORDERED: NORMAL SALINE IV ONE (10:09)
--- NOTE | 2018-08-20 10:51 | NUR ---
Contacted dietary for Vital HP, currently not available, will switch to Vital AF with new bag and tubing at 1400, increased rate to 20 cc/hour.
[2018-08-20] MEDS ORDERED: albumin (human) 25% 100ml IV 100 ML IV PRN (11:40)
[2018-08-20] MEDS ORDERED: epoetin 20,000 units/ml inj IV ONE (11:40)
--- NOTE | 2018-08-20 11:47 | NUR ---
Aki cath placed by Dr Brown RIght groin, plan is for dialysis for 2 days, Cancel order for lasix since getting dialysis. Dietary note, One bottle of Vital HP found will hang when available.
[2018-08-20] MEDS ORDERED: heparin 1,000 units/ml 10ml inj HE ONE ×2 (13:25)
[2018-08-20] MEDS: normal saline 1000ml 1,000 ML IV SCH (13:58)
[2018-08-20] MEDS: fat emulsion IV 100 ML, MVI, adult No.4 with vit. K 10 ML, Trace element-5 inj. 1 ML in... IV SCH ×4 (15:37)
[2018-08-20] MEDS: rivaroxaban 20mg tablet PO SCH (21:00)
[2018-08-20] MEDS: insulin glargine (Lantus) pen - multi-dose SQ SCH (21:47)
[2018-08-21] VITALS (24 sets, daily range): BP systolic 120–193; BP diastolic 49–118
[2018-08-21] MEDS: dexmedetomidin/NS 400mcg/100ml 100 ML IV SCH ×7 (01:34→23:53)
[2018-08-21] MEDS ORDERED: acetaminophen 325mg tablet PO PRN (02:05)
[2018-08-21] MEDS: mineral oil/petrolatum ophthal oint EACHEYE SCH ×4 (02:53→20:30)
[2018-08-21] MEDS: piperacillin-tazo 2.25gm/50ml 50 ML IV SCH ×4 (02:53→20:00)
[2018-08-21] MEDS: metoclopramide 5 mg/ml inj IV SCH ×2 (02:54→07:42)
[2018-08-21] MEDS: ipratropium/albuterol 3ml nebule IH SCH ×4 (02:59→20:45)
[2018-08-21] MEDS: insulin regular, human vial - multi-dose SQ SCH ×3 (03:01→21:41)
[2018-08-21 03:27] LABS: BASOPHILS % (AUTO) 0.1 % (0-1); EOSINOPHILS # (AUTO) 0.3 X10'3 (0-0.9); EOSINOPHILS % (AUTO) 2.7 % (0-6); HEMATOCRIT 23.7 % (42.0-52.0); HEMOGLOBIN 8.1 g/dl (14.0-17.9); LYMPHOCYTES # (AUTO) 0.6 X10'3 (1.1-4.8); LYMPHOCYTES % (AUTO) 5.2 % (21-51); MEAN CORPUSCULAR HEMOGLOBIN 34.3 PG (27.0-31.0); MEAN CORPUSCULAR HGB CONC 34.2 % (33.0-36.5); MEAN CORPUSCULAR VOLUME 100.3 FL (78-98); MEAN PLATELET VOLUME 9.1 FL (7.4-10.4); MONOCYTES # (AUTO) 0.7 X10'3 (0-0.9); MONOCYTES % (AUTO) 6.6 % (2-12); NEUTROPHILS # (AUTO) 9.2 X10'3 (1.8-7.7); NEUTROPHILS % (AUTO) 85.4 % (42-75); PLATELET COUNT 103 X10'3 (140-440); RED BLOOD COUNT 2.36 X10'6 (4.70-6.10); RED CELL DISTRIBUTION WIDTH 15.8 % (11.5-14.5); WHITE BLOOD COUNT 10.8 X10'3 (4.5-11.0)
[2018-08-21 03:48] LABS: ALBUMIN 1.3 G/DL (3.4-5.0); ANION GAP 13 (8-16); BLOOD UREA NITROGEN 94 MG/DL (7-18); BUN/CREATININE RATIO 12.8 (5.4-32.0); CALCIUM 7.9 MG/DL (8.5-10.1); CHLORIDE 100 MMOL/L (99-107); CREATININE 7.36 MG/DL (0.60-1.10); GLUCOSE 163 MG/DL (70-104); POTASSIUM 3.6 MMOL/L (3.5-5.1); SODIUM 132 MMOL/L (135-145); TOTAL CARBON DIOXIDE 19.2 MMOL/L (24-32); eGFR 7 ML/MIN
[2018-08-21 03:55] LABS: ABG BASE EXCESS -5.7 mmol/L (-2.0-3.0); ABG HCO3 18.7 mmol/L (22.0-26.0); ABG OXYGEN SATURATION 97.4 % (95-98); ABG PCO2 (T) 34.1 mmHg (35.0-48.0); ABG PH (T) 7.363 (7.350-7.450); ABG PO2 (T) 106.9 mmHg (83-108); FCOHb 0.1 % (0.5-1.5); FMetHb 0.3 % (0.3-1.12); MINUTE VOLUME 14 L/min; PATIENT TEMPERATURE 38.2; PEEP 5 cm H2O; RESPIRATORY RATE (OBSERVED) 18 b/min; TOTAL HEMOGLOBIN 8.6 G/dl (14.0-18.0)
[2018-08-21] MEDS: sodium bicarbonate 650mg tablet PO SCH ×4 (07:42→21:33)
[2018-08-21] MEDS: famotidine/PF 10 mg/ml inj IV SCH ×2 (07:42→21:32)
[2018-08-21] MEDS: folic acid 1mg tablet PO SCH (07:43)
[2018-08-21] MEDS: nicotine 14mg patch - 24hr TD SCH (07:43)
[2018-08-21] MEDS: multivitamins, therapeutics tablet PO SCH (07:43)
[2018-08-21] MEDS: K, MAG and/or Phos replacement - Verify level? MC SCH (07:44)
[2018-08-21] MEDS: budesonide 0.5mg/2ml UD nebule IH SCH ×2 (08:19→20:45)
[2018-08-21] MEDS ORDERED: heparin 1,000unit/ml 10ml vial 10 ML IV ONE (08:44)
[2018-08-21] MEDS ORDERED: albumin (human) 25% 100ml IV 100 ML IV PRN (08:45)
[2018-08-21] MEDS ORDERED: epoetin 20,000 units/ml inj IV ONE (08:45)
[2018-08-21 09:03] LABS: MAGNESIUM 1.4 MG/DL (1.5-2.4); PHOSPHORUS 3.5 MG/DL (2.3-4.5)
[2018-08-21] MEDS ORDERED: magnesium 4gm in 100ml NS 100 ML IV PRN (09:50)
[2018-08-21] MEDS ORDERED: magnesium 2GM in 50ml NS 50 ML IV PRN (09:50)
[2018-08-21] MEDS ORDERED: magnesium Cl slow-release 64mg tablet PO PRN (09:50)
--- NOTE | 2018-08-21 14:41 | NUR ---
reassessment: Pt intubated tolerating TF at goal; TPN weaning in progress. Ileostomy 1540ml output; normal given first official output from new ostomy post-op. HD started yesterday per MD. Will monitor for additional protein needs and ileostomy output w/ enteral nutrition. Recommend: 1.Tube feedings at 20 ml/hr and advance by 20 ml q 8 hours to goal rate of 65 ml/hr using Vital High Protein will provide total volume of 1560 ml, 1560 cals, 137 gm protein, and 1304 ml water, 1248 gm phosphorus, and 2496 mg potassium. 2. Prealbumin and TG q /, daily weights 3. PO MVM/folic for etoh 4. Patient will need written ileostomy education handout with verbal review. 6. When extubated, advance diet as medically indicated to low fiber Addendum: 08/21/18 at [address] Amended: Links added.
--- NOTE | 2018-08-21 18:30 | NUR ---
Patient in room CICU 2007. I have received report from Anders GOMEZ, and had the opportunity to ask questions and assume patient care.
--- NOTE | 2018-08-21 19:30 | NUR ---
PT resting with no s/s of distress noted at this time. VSS. PT is intubated and mechanically vented, tolerating settings well, O2 sat >97%. PT receiving TF, Vital High Protein to NGT in RT nare, running @ 65mL/hr. PT on Precedex and fentanyl for sedation, tolerating well. Knox draining to gravity. Drsg to midline ABD CDI. Bed is locked and low. bilat soft wrist restraints in place and secure. Will continue to monitor.
[2018-08-21] MEDS: FENTANYL-0.9 % NACL/PF 100 ML IV PRN (20:30)
[2018-08-21] MEDS: rivaroxaban 20mg tablet PO SCH (21:33)
[2018-08-21] MEDS: insulin glargine (Lantus) pen - multi-dose SQ SCH (21:42)
[2018-08-22] VITALS (19 sets, daily range): BP systolic 49–207; BP diastolic 18–89
--- NOTE | 2018-08-22 | NUR ---
PT resting with no s/s of distress noted at this time. VSS. PT tolerating TF thus far. Bilat soft wrist restraints remain in place and secure. Bed is locked and low. Will continue to monitor.
[2018-08-22] MEDS: piperacillin-tazo 2.25gm/50ml 50 ML IV SCH ×3 (01:54→14:00)
[2018-08-22] MEDS: mineral oil/petrolatum ophthal oint EACHEYE SCH ×3 (01:54→14:00)
[2018-08-22 02:43] LABS: BASOPHILS % (AUTO) 0.2 % (0-1); EOSINOPHILS # (AUTO) 0.3 X10'3 (0-0.9); EOSINOPHILS % (AUTO) 3.1 % (0-6); HEMATOCRIT 23.4 % (42.0-52.0); HEMOGLOBIN 7.9 g/dl (14.0-17.9); LYMPHOCYTES # (AUTO) 0.5 X10'3 (1.1-4.8); LYMPHOCYTES % (AUTO) 5.1 % (21-51); MEAN CORPUSCULAR HEMOGLOBIN 33.8 PG (27.0-31.0); MEAN CORPUSCULAR HGB CONC 33.8 % (33.0-36.5); MEAN CORPUSCULAR VOLUME 99.9 FL (78-98); MEAN PLATELET VOLUME 8.9 FL (7.4-10.4); MONOCYTES # (AUTO) 0.8 X10'3 (0-0.9); MONOCYTES % (AUTO) 7.5 % (2-12); NEUTROPHILS % (AUTO) 84.1 % (42-75); PLATELET COUNT 129 X10'3 (140-440); RED BLOOD COUNT 2.34 X10'6 (4.70-6.10); RED CELL DISTRIBUTION WIDTH 15.8 % (11.5-14.5); WHITE BLOOD COUNT 10.7 X10'3 (4.5-11.0)
[2018-08-22 03:06] LABS: ALBUMIN 1.7 G/DL (3.4-5.0); ANION GAP 12 (8-16); BLOOD UREA NITROGEN 58 MG/DL (7-18); BUN/CREATININE RATIO 11.6 (5.4-32.0); CALCIUM 7.8 MG/DL (8.5-10.1); CHLORIDE 99 MMOL/L (99-107); CREATININE 5.01 MG/DL (0.60-1.10); GLUCOSE 115 MG/DL (70-104); MAGNESIUM 1.7 MG/DL (1.5-2.4); PHOSPHORUS 3.2 MG/DL (2.3-4.5); POTASSIUM 3.8 MMOL/L (3.5-5.1); SODIUM 134 MMOL/L (135-145); TOTAL CARBON DIOXIDE 23.4 MMOL/L (24-32); eGFR 11 ML/MIN
[2018-08-22] MEDS: dexmedetomidin/NS 400mcg/100ml 100 ML IV SCH ×2 (03:12→08:11)
[2018-08-22] MEDS: ipratropium/albuterol 3ml nebule IH SCH ×3 (03:30→14:00)
[2018-08-22 03:40] LABS: ABG BASE EXCESS -0.8 mmol/L (-2.0-3.0); ABG HCO3 22.6 mmol/L (22.0-26.0); ABG OXYGEN SATURATION 96.8 % (95-98); ABG PCO2 (T) 34.7 mmHg (35.0-48.0); ABG PH (T) 7.436 (7.350-7.450); ABG PO2 (T) 100.8 mmHg (83-108); FCOHb 0.3 % (0.5-1.5); FMetHb 0.3 % (0.3-1.12); FO2Hb 96.2 % (94-100); MINUTE VOLUME 12 L/min; PATIENT TEMPERATURE 38.1; PEEP 5 cm H2O; TOTAL HEMOGLOBIN 10.1 G/dl (14.0-18.0)
--- NOTE | 2018-08-22 06:49 | NUR ---
Problems reprioritized. Patient report given, questions answered & plan of care reviewed with Edita GOMEZ.
[2018-08-22] MEDS: budesonide 0.5mg/2ml UD nebule IH SCH (07:11)
[2018-08-22] MEDS: K, MAG and/or Phos replacement - Verify level? MC SCH (08:00)
[2018-08-22] MEDS: FENTANYL-0.9 % NACL/PF 100 ML IV PRN (08:11)
[2018-08-22] MEDS: methylnaltrexone br 12mg/0.6ml inj***SubQ only SQ SCH (08:11)
[2018-08-22] MEDS: sodium bicarbonate 650mg tablet PO SCH ×3 (08:12→17:00)
[2018-08-22] MEDS: multivitamins, therapeutics tablet PO SCH (08:12)
[2018-08-22] MEDS: famotidine/PF 10 mg/ml inj IV SCH (08:12)
[2018-08-22] MEDS: folic acid 1mg tablet PO SCH (08:12)
[2018-08-22] MEDS: nicotine 14mg patch - 24hr TD SCH (08:12)
[2018-08-22 08:16] LABS: HBSAG SCREEN Negative (Negative)
[2018-08-22] MEDS: insulin regular, human vial - multi-dose SQ SCH (08:56)
--- NOTE | 2018-08-22 09:40 | NUR ---
patient extubated per MD order and placed on 3 liters NC, sats 100% and patient is able to talk and comprehends what is going on. Family at the bedside for support
[2018-08-22] MEDS: HYDROmorphone 1 mg/ml syringe IV PRN ×3 (11:37→17:36)
[2018-08-22] MEDS ORDERED: epoetin 20,000 units/ml inj IV ONE (11:45)
[2018-08-22] MEDS ORDERED: albumin (human) 25% 100ml IV 100 ML IV PRN (11:45)
--- NOTE | 2018-08-22 13:22 | NUR ---
Pt has been extubated; NG remains in at goal meeting needs. Pending swallow eval once more awake s/p extubation per RN. Will need Ileostomy ed once appropriate prior to d/c. Addendum: 08/22/18 at [address] Amended: Links added.
[2018-08-22] MEDS: heparin 1,000unit/ml 10ml vial 10 ML IV ONE ×2 (14:30→14:32)
[2018-08-22] MEDS: normal saline 1000ml 1,000 ML IV SCH (14:50)
--- NOTE | 2018-08-22 14:59 | NUR ---
patient became very tachycardic into the 150s upon starting dialysis, BP dropped to 58/42 and albumin was given per MD order. BP came up to 110/62 immediately after but, patient appears pale and sob. Dr. Preciado contacted by myself and the dialysis nurse which we were instructed to stop dialysis treatment. Patients at the bedside and she is constantly being updated on POC and patients status. Patient is beginning to calm down now and HR is slowly trending down. Will continue to monitor.
[2018-08-22 16:24] LABS: MEAN CORPUSCULAR HEMOGLOBIN 33.2 PG (27.0-31.0); MEAN CORPUSCULAR HGB CONC 32.8 % (33.0-36.5); MEAN CORPUSCULAR VOLUME 101.2 FL (78-98); MEAN PLATELET VOLUME 8.7 FL (7.4-10.4); PLATELET COUNT 184 X10'3 (140-440); RED BLOOD COUNT 1.36 X10'6 (4.70-6.10); WHITE BLOOD COUNT 22.5 X10'3 (4.5-11.0)
[2018-08-22 16:27] LABS: HEMOGLOBIN 4.6 g/dl (14.0-17.9)
[2018-08-22 16:28] LABS: HEMATOCRIT 13.9 % (42.0-52.0)
[2018-08-22 16:37] LABS: OCCULT BLOOD STOOL POSITIVE (Neg)
--- NOTE | 2018-08-22 16:51 | NUR ---
rapidly infusing two units at the bedside, xeralto dcd, protonix drip ordered HR is currently 132 and BP is 89/53 MAP 68, Dr. Preciado is aware of the status. Also after updating of POC and her discussion with Dr. Preciado, pATIENT IS NOW DNR, CODE STATUS CHANGED IN THE COMPUTER.
[2018-08-22 17:16] LABS: ABG BASE EXCESS -8.8 mmol/L (-2.0-3.0); ABG HCO3 17.6 mmol/L (22.0-26.0); ABG OXYGEN SATURATION 92.3 % (95-98); ABG PCO2 (T) 40.5 mmHg (35.0-48.0); ABG PH (T) 7.257 (7.350-7.450); ABG PO2 (T) 74.6 mmHg (83-108); ALLEN'S TEST Positive; FCOHb 0.3 % (0.5-1.5); FMetHb 0.1 % (0.3-1.12); FO2Hb 91.9 % (94-100); MINUTE VOLUME 25 L/min; RESPIRATORY RATE (OBSERVED) 35 b/min; TIDAL VOLUME 648 mL; TOTAL HEMOGLOBIN 7.9 G/dl (14.0-18.0)
[2018-08-22] MEDS ORDERED: morphine 2 MG/ML inj. syringe IV PRN (17:20)
--- NOTE | 2018-08-22 17:29 | NUR ---
at the bedside saying she does not want any further blood or surgery done if needed, she would like to withdraw care at this time. Dr. Preciado contacted and Comfort care orders received, also paged dr naik and spoke with him also
[2018-08-22] MEDS ORDERED: morphine 4 MG/ML inj SYRINge IV PRN (17:30)
[2018-08-22] MEDS: LORazepam 2 mg/ml vial IV PRN ×2 (17:36→18:51)
--- NOTE | 2018-08-22 17:47 | NUR ---
DR wise ordered ativan 1mg q1 hr and 4mg morphine q1 hr via telephone, orders translated into the MAR. Dilaudid given in the meantime while awaiting the morphine order to process due to patients distress and pain level, BP is currently 72/51 MAP of 58 and HR is 138. Bi pap removed and patient is on 2liters NC and sats are 94%
[2018-08-22] MEDS: morphine 4 MG/ML inj SYRINge IV PRN ×2 (18:05→19:29)
--- NOTE | 2018-08-22 18:37 | NUR ---
Problems reprioritized. Patient report given, questions answered & plan of care reviewed with Lizett GOMEZ.
--- NOTE | 2018-08-22 18:40 | NUR ---
Patient in room CICU 2008. I have received report from Edita GOMEZ, and had the opportunity to ask questions and assume patient care.
--- NOTE | 2018-08-22 19:03 | NUR ---
PT is resting with no s/s of distress noted at this time. HR is in 120's, monitor not picking up a BP at this time. 1mg PRN Ativan just given for comfort. Will give pain meds as they become available. and daughter are at bedside. DRN band in place. Will continue to monitor.
[2018-08-22] MEDS ORDERED: pantoprazole 40MG/NS 100ML BAG 100 ML IV SCH (21:00)
--- NOTE | 2018-08-22 23:13 | NUR ---
RN IS TO DOCUMENT YES TO ALL APPLICABLE AREAS Pronouncement of : 1. Time Physician Notified: September Colton notified at 2014 2. Date of : 08/22/2018 3. Time of : 1936 4. DNR/Withdraw life support documented:Yes 5. Monitor strip has been placed on chart: Yes 6. Assessment process is of one-minute duration and includes following criteria: a) Patient is unresponsive to all stimuli: Yes b) Pupils fixed and non-reactive:Yes c) Auscultation of precordium reveals absence of heart tones: Yes d) Auscultation of lungs reveals absence of breath sounds: Yes e) Absence of blood pressure / all vital signs: Yes f) QRS complexes are not present on monitor / EKG strip: Yes g) Pacer spikes without capture:N/A 4. Comments: PT passes with and daughter at bedside. has called [facility] and made arrangements. Donor network was Called at 195 and stated there would be no referral and it is ok to release. All postmortem care provided. [facility] picked up PT at 2306.
== END 2018-08-22 19:38 | disposition expired | DRG 853 ==
LOC: ER 02:39 → ORTHO 4S 07:16 → CICU 2S 17:00
PROVIDERS: ADMIT Internal Medicine; ATTEND Internal Medicine
PROC: 0DTF0ZZ Resection of Right Large Intestine, Open Approach (ICD-10-PCS; 2018-08-11)
PROC: 5A1955Z Respiratory Ventilation, Greater than 96 Consecutive Hours (ICD-10-PCS; 2018-08-11)
PROC: 03HY32Z Insertion of Monitoring Device into Upper Artery, Percutaneous Approach (ICD-10-PCS; 2018-08-11)
PROC: 30233R1 Transfusion of Nonautologous Platelets into Peripheral Vein, Percutaneous Approach (ICD-10-PCS; 2018-08-12)
PROC: 30233N1 Transfusion of Nonautologous Red Blood Cells into Peripheral Vein, Percutaneous Approach (ICD-10-PCS; 2018-08-12)
PROC: 0D1B0Z4 Bypass Ileum to Cutaneous, Open Approach (ICD-10-PCS; principal; 2018-08-12 19:12)
PROC: 02HV33Z Insertion of Infusion Device into Superior Vena Cava, Percutaneous Approach (ICD-10-PCS; 2018-08-17)
PROC: 06HM33Z Insertion of Infusion Device into Right Femoral Vein, Percutaneous Approach (ICD-10-PCS; 2018-08-20)
PROC: 5A1D70Z Performance of Urinary Filtration, Intermittent, Less than 6 Hours Per Day (ICD-10-PCS; 2018-08-20)
PROC: 5A1D70Z Performance of Urinary Filtration, Intermittent, Less than 6 Hours Per Day (ICD-10-PCS; 2018-08-21)
PROC: 30233N1 Transfusion of Nonautologous Red Blood Cells into Peripheral Vein, Percutaneous Approach (ICD-10-PCS; 2018-08-22)
PROC: 5A1D70Z Performance of Urinary Filtration, Intermittent, Less than 6 Hours Per Day (ICD-10-PCS; 2018-08-22)
DX: A41.9 Sepsis, unspecified organism (principal); K55.049 Acute infarction of large intestine, extent unspecified; J96.00 Acute respiratory failure, unspecified whether with hypoxia or hypercapnia; R65.21 Severe sepsis with septic shock; N17.9 Acute kidney failure, unspecified; A09 Infectious gastroenteritis and colitis, unspecified; K92.2 Gastrointestinal hemorrhage, unspecified; E87.2 Acidosis; K56.7 Ileus, unspecified; D64.9 Anemia, unspecified; I10 Essential (primary) hypertension; I25.10 Atherosclerotic heart disease of native coronary artery without angina pectoris; I48.91 Unspecified atrial fibrillation; I71.4 Abdominal aortic aneurysm, without rupture; J43.9 Emphysema, unspecified; K57.30 Diverticulosis of large intestine without perforation or abscess without bleeding; K76.0 Fatty (change of) liver, not elsewhere classified; F17.210 Nicotine dependence, cigarettes, uncomplicated; E87.70 Fluid overload, unspecified; Z51.5 Encounter for palliative care; Z66 Do not resuscitate; Z90.49 Acquired absence of other specified parts of digestive tract; Z79.4 Long term (current) use of insulin; Z79.01 Long term (current) use of anticoagulants
CPT/HCPCS: 36415; 36569; 36600; 71045; 74018; 74176; 76937; 80048; 80053; 80305; 81001; 82272; 82550; 82570; 82803; 82810; 82948; 83036; 83605; 83690; 83735; 84100; 84134; 84300; 84478; 84484; 84560; 85018; 85025; 85027; 85610; 85730; 86885; 86900; 86901; 86920; 87040; 87070; 87075; 87207; 87340; 88307; 93005; 94002; 94003; 94640; 94660; 94760; 96365; 96366; 96368; 96375; 96376; 99285; A4421; A6253; A6266; A6446; A6449; C1758; C9113; G0257; G0378; J0171; J0885; J1170; J1580; J1644; J1815; J1940; J1956; J2060; J2150; J2250; J2270; J2405; J2543; J2765; J3010; J3411; J3475; J3490; J7030; J7040; J7060; J7120; J7611; J7626; P9016; P9035; P9045; P9047